=== PATIENT | female | born 1960 | race Caucasian/White ===

== ENCOUNTER 2023-08-17 11:41 | Outpatient (REF) | payer MEDICAID, SELFPAY ==
[2023-08-17 14:17] LABS: MANUAL DIFF FLAG NO
[2023-08-17 14:19] LABS: Basophils Percent Auto 0.9 % (0-2); Eosinophils Absolute Auto 0.1 X10*3/uL (0.0-0.4); Eosinophils Percent Auto 2.2 % (0-4); Hematocrit 41.7 % (37.0-47.0); Hemoglobin 13.9 g/dl (12.0-16.0); Imm Gran Abs Auto 0.01 X10*3/uL (0.00-0.03); Imm Gran Pct Auto 0.2 % (0.0-0.4); Lymphocytes Absolute Auto 1.5 X10*3/uL (1.2-4.9); Lymphocytes Percent Auto 33.3 % (20-40); Mean Corpuscular HGB Conc 33.3 g/dl (31.0-35.0); Mean Corpuscular Hemoglobin 32.3 pg (27.0-33.0); Mean Corpuscular Volume 96.8 fL (80.0-98.0); Mean Platelet Volume 11.3 fL (9.4-12.3); Monocytes Absolute Auto 0.4 X10*3/uL (0.1-1.2); Monocytes Percent Auto 8.1 % (2-11); Neutrophils Absolute Auto 2.5 x10*3/uL (2.0-8.3); Neutrophils Percent Auto 55.3 % (45-73); Platelet Count 185 X10*3/uL (160-400); Red Blood Count 4.31 X10*6/uL (4.20-5.50); White Blood Count 4.5 X10*3/uL (4.8-10.8)
[2023-08-17 14:35] LABS: Anion Gap 15 (12-20); Blood Urea Nitrogen 3 mg/dL (9-16); Calcium 9.7 mg/dL (8.4-10.2); Carbon Dioxide 23 mmol/L (22-29); Chloride 105 mmol/L (96-108); Cholesterol 246 mg/dL (<200); Estimated Glomerular Filt Rate > 60; Glucose Fasting 76 mg/dL (60-99); HDL Cholesterol 132 mg/dL (>40); LDL Cholesterol Calculated 95 mg/dL (<100); Sodium 139 mmol/L (135-145); Triglycerides 98 mg/dL (<150)
== END 2023-08-17 11:42 | disposition home or self-care (01) ==
LOC: HO.CHCLDS 11:41
PROVIDERS: Visit Provider Internal Medicine
DX: Z00.00 Encounter for general adult medical examination without abnormal findings (principal)
CPT/HCPCS: 36415; 80048; 80061; 85025

== ENCOUNTER 2023-09-16 10:08 | Outpatient (REF) | payer MEDICAID, SELFPAY ==
--- NOTE | ~2023-09-16 | MM_ITS ---
EXAMINATION: MM SCREENING DIGITAL BREAST TOMOSYNTHESIS, BILATERAL CLINICAL INFORMATION: Screening. Asymptomatic. COMPARISON: Mammography: This study is compared with prior exams dating back to 2015. TECHNIQUE: Digital breast tomosynthesis is performed in both the craniocaudal and mediolateral oblique views along with computer-aided detection (CAD). Synthesized 2D images are generated from the tomosynthesis. FINDINGS: The breasts are almost entirely fatty (ACR BI-RADS breast composition Category a). There are no significant masses, abnormal calcifications, or other abnormalities. MM/MM tomosynthesis screening BI IMPRESSION: No mammographic evidence of malignancy. ASSESSMENT: BI-RADS BI-RADS 1 - Negative RECOMMENDATION: Routine annual mammography screening. 1 year F/U This examination should not preclude the clinical evaluation of a suspicious palpable abnormality. This patient's information was entered into a reminder system with a target due date for their next mammogram.
== END 2023-09-16 10:09 | disposition home or self-care (01) ==
LOC: HO.MAMMO 10:08
PROVIDERS: PCP Internal Medicine; Visit Provider Internal Medicine
DX: Z12.31 Encounter for screening mammogram for malignant neoplasm of breast (principal)
CPT/HCPCS: 77063; 77067

== ENCOUNTER → 2023-09-16 10:30 | Outpatient (BNV) | payer MEDICAID, SELFPAY | PROVIDERS: PCP Internal Medicine; Visit Provider Radiology Diagnostic Radiology | DX: Z12.31 Encounter for screening mammogram for malignant neoplasm of breast (principal) | CPT/HCPCS: 77063; 77067 ==

== ENCOUNTER 2024-03-21 12:08 | Outpatient (REF) | payer MEDICAID, SELFPAY ==
[2024-03-21 14:40] LABS: MANUAL DIFF FLAG NO
[2024-03-21 14:47] LABS: Basophils Absolute Auto 0.1 X10*3/uL (0.0-0.2); Basophils Percent Auto 0.9 % (0-2); Eosinophils Absolute Auto 0.1 X10*3/uL (0.0-0.4); Eosinophils Percent Auto 1.3 % (0-4); Hematocrit 32.8 % (37.0-47.0); Hemoglobin 10.3 g/dl (12.0-16.0); Imm Gran Abs Auto 0.02 X10*3/uL (0.00-0.03); Imm Gran Pct Auto 0.4 % (0.0-0.4); Lymphocytes Absolute Auto 1.5 X10*3/uL (1.2-4.9); Lymphocytes Percent Auto 28.5 % (20-40); Mean Corpuscular HGB Conc 31.4 g/dl (31.0-35.0); Mean Corpuscular Hemoglobin 30.1 pg (27.0-33.0); Mean Corpuscular Volume 95.9 fL (80.0-98.0); Monocytes Absolute Auto 0.5 X10*3/uL (0.1-1.2); Monocytes Percent Auto 9.7 % (2-11); Neutrophils Absolute Auto 3.2 x10*3/uL (2.0-8.3); Neutrophils Percent Auto 59.2 % (45-73); Platelet Count 376 X10*3/uL (160-400); Red Blood Count 3.42 X10*6/uL (4.20-5.50); Red Cell Distribution Width 15.3 % (11.0-16.0); White Blood Count 5.4 X10*3/uL (4.8-10.8)
[2024-03-21 15:11] LABS: Anion Gap 12 (12-20); Blood Urea Nitrogen 12 mg/dL (9-16); Calcium 10.4 mg/dL (8.4-10.2); Carbon Dioxide 28 mmol/L (22-29); Chloride 107 mmol/L (96-108); Estimated Glomerular Filt Rate > 60; Glucose Random 97 mg/dL (60-115); Potassium 4.4 mmol/L (3.3-5.1); Sodium 143 mmol/L (135-145)
== END 2024-03-21 12:09 | disposition home or self-care (01) ==
LOC: HO.CHCLDS 12:08
PROVIDERS: Visit Provider Internal Medicine
DX: I21.4 Non-ST elevation (NSTEMI) myocardial infarction (principal); G43.709 Chronic migraine without aura, not intractable, without status migrainosus; D72.828 Other elevated white blood cell count; I10 Essential (primary) hypertension
CPT/HCPCS: 36415; 80048; 85025

== ENCOUNTER 2024-09-04 10:56 | Outpatient (REF) | payer MEDICAID, SELFPAY ==
[2024-09-04 14:24] LABS: MANUAL DIFF FLAG NO
[2024-09-04 14:28] LABS: Basophils Percent Auto 0.6 % (0-2); Eosinophils Percent Auto 0.2 % (0-4); Hematocrit 44.1 % (37.0-47.0); Hemoglobin 14.7 g/dl (12.0-16.0); Imm Gran Abs Auto 0.02 X10*3/uL (0.00-0.03); Imm Gran Pct Auto 0.3 % (0.0-0.4); Lymphocytes Absolute Auto 0.9 X10*3/uL (1.2-4.9); Lymphocytes Percent Auto 14.5 % (20-40); Mean Corpuscular HGB Conc 33.3 g/dl (31.0-35.0); Mean Corpuscular Hemoglobin 30.6 pg (27.0-33.0); Mean Corpuscular Volume 91.9 fL (80.0-98.0); Monocytes Absolute Auto 0.3 X10*3/uL (0.1-1.2); Monocytes Percent Auto 4.6 % (2-11); Neutrophils Absolute Auto 5.1 x10*3/uL (2.0-8.3); Neutrophils Percent Auto 79.8 % (45-73); Platelet Count 147 X10*3/uL (160-400); Red Cell Distribution Width 15.9 % (11.0-16.0); White Blood Count 6.4 X10*3/uL (4.8-10.8)
[2024-09-04 15:11] LABS: Alanine Aminotransferase 65 U/L (0-31); Albumin Level 4.8 g/dL (3.5-5.0); Alkaline Phosphatase 152 U/L (39-117); Anion Gap 19 (12-20); Aspartate Amino Transferase 159 U/L (5-31); Blood Urea Nitrogen 5 mg/dL (9-16); Calcium 10.1 mg/dL (8.4-10.2); Carbon Dioxide 22 mmol/L (22-29); Chloride 101 mmol/L (96-108); Estimated Glomerular Filt Rate > 60; Glucose Random 82 mg/dL (60-115); Potassium 4.9 mmol/L (3.3-5.1); Sodium 137 mmol/L (135-145)
== END 2024-09-04 10:57 | disposition home or self-care (01) ==
LOC: HO.CHCLDS 10:56
PROVIDERS: Visit Provider Internal Medicine
DX: R19.7 Diarrhea, unspecified (principal)
CPT/HCPCS: 36415; 80053; 85025

== ENCOUNTER 2024-09-05 11:02 | Outpatient (REF) | payer MEDICAID, SELFPAY ==
[2024-09-06 08:23] LABS: HBc Num1 0.19 S/CO (0.00-0.79); Hepatitis A Antibody IgM 0.18 Index (0-0.79); Hepatitis B Core Antibody Nonreactive (Nonreactive); Hepatitis B Surface Antigen Negative (Negative); ~HepC Num1 0.25 S/CO (0.00-0.79); ~Hepatitis A Antibody IgM Nonreactive (Nonreactive); ~Hepatitis B Surface Antibody NONREACTIVE (Nonreactive); ~Hepatitis C Antibody Nonreactive (Nonreactive)
== END 2024-09-05 11:03 | disposition home or self-care (01) ==
LOC: HO.CHCLDS 11:02
PROVIDERS: Visit Provider Internal Medicine
DX: R74.01 Elevation of levels of liver transaminase levels (principal)
CPT/HCPCS: 36415; 86704; 86706; 86709; 86803; 87340

== ENCOUNTER 2025-06-27 11:48 | Outpatient (REF) | payer MEDICAID, SELFPAY ==
--- OUTSIDE RECORDS SUMMARY | 2025-06-27 11:15 | XMS_ITS | Encounter Summary ---
Author Organization [employer] Address [address] [facility] 7t [place] [address] Care Team Providers Care Pulp Operator Name Role Phone Fany James MD Primary Care Provider +1- [phone] Encounter Details Date Type Department Care Team ([facility] st Contact Info) Description 06/27/2025 11:15 AM EDT Office Visit [facility] CHC MED & PEDS [address] [place] [address] Yojana Bell MD [address] [place] [address] Chronic pain syndrome (Primary Dx) Social History Tobacco Use Types Packs/Day Years Used Date Smoking Tobacco: Every Day Cigarettes 0.5 45 Passive Smoke Exposure: Current Smokeless Tobacco: Never Alcohol Use Standard Drinks/Week Comments Not Currently 0 (1 standard drink = 0.6 oz pur e alcohol) Depression Answer Date Recorded Patient Health Questionnaire-9 Score 4 02/06/2025 Patient Health Questionnaire-9 Score 4 02/06/2025 Last PHQ-9: Questionnaire Data Not on file 0 02/06/2025 Housing Stability Answer Date Recorded What is your housing situation today? I have angela silva 01/29/[address] you li ve. Do you have problems with any of the following? None of the above 01/29/2024 Food Insecurity Answer Date Recorded Within the past 12 months, y ou worried that your food would run out before you got money to buy more: Never True 02/07/2025 Within the past 12 months,th e food you bought just didn't last and you didn't have enough money to get more: Never True Transportation Answer Date Recorded In the past 12 months, has l ack of transportation kept you from medical appts, meetings, work or from getting things needed for daily living? No 01/29/2024 Utilities Answer Date Recorded In the past 12 months, has t he electric, gas, oil or water company threatened to shut off services in your home? No 02/07/2025 Depression Answer Date Recorded Patient Health Questionnaire-2 Score 2 02/06/2025 Internet Access Answer Date Recorded Internet Access Q1 Yes 02/07/2025 Internet Access Q2 Not on file 02/07/2025 Comments Unknown Sex and Gender Information Value Date Recorded Sex Assigned at Female 08/22/2022 10:16 AM EDT Legal Sex Female 10:16 AM EDT Gender Identity Female 08/22/2022 10:16 AM EDT Sexual Orientation Choose not to disclose 2024 3:08 PM EDT documented as of this encounter Last Filed Vital Signs Vital Sign Reading Time Taken Comments Blood Pressure 140/86 06/27/2025 11:25 AM EDT Pulse 101 06/27/2025 11:25 AM EDT Temperature 36.8 C (98.2 F) 06/27/2025 11:25 AM EDT Respiratory Rate 20 06/27/2025 11:25 AM EDT Oxygen Saturation 96% 06/27/2025 11:25 AM EDT Inhaled Oxygen Concentration - - Weight 72.1 kg (159 lb) 06/27/2025 11:25 AM EDT Height - - Body Mass Index 27.29 03/07/2025 1:34 PM EDT documented in this encounter Plan of Treatment Upcoming Encounters Date Type Department Care Team (Late st Contact Info) Description 07/15/2025 10:00 AM EDT Medication Management [facility] MED & PEDS [address] [place] [address] Raegan Bhardwaj PharmD [address] [place] [address] 07/31/2025 11:30 AM EDT Office Visit [facility] MED & PEDS [address] [place] [address] Fany James MD [address] [place] [id number] Scheduled Orders Name Type Priority Associated Diagnoses Orde r Schedule Basic Metabolic Panel Lab Routine Chronic pain syndrome Expected: 06/27/2025 (Approximate), Expires: 06/27/2026 CBC auto differential Lab Routine Chronic pain syndrome Expected: 06/27/2025 (Approximate), Expires: 06/27/2026 Hepatic Function Panel Lab Routine Chronic pain syndrome Expected: 06/27/2025 (Approximate), Expires: 06/27/2026 Vitamin B12/Folate, Serum Panel Lab Routine Chronic pain syndrome Expected: 06/27/2025, Expires: 06/27/2026 TSH W/Reflex to FT4 Lab Routine Chronic pain syndrome Expected: 06/27/2025 (Approximate), Expires: 06/27/2026 Lipase Lab Routine Chronic pain syndrome Expected: 06/27/2025, Expires: 06/27/2026 Magnesium Lab Routine Chronic pain syndrome Expected: 06/27/2025, Expires: 06/27/2026 documented as of this encounter Procedures Procedure Name Priority Date/Time Associated Diagnosis Comments POCT RAPID COVID ANTIGEN Routine 06/27/2025 11:50 AM EDT Chronic pain syndrome POCT URINALYSIS DIPSTICK Routine 06/27/2025 11:50 AM EDT Chronic pain syndrome documented in this encounter Results * (ABNORMAL) POCT Urinalysis (06/27/2025 11:50 AM EDT) Color, UA Yellow Clarity, UA Clear Glucose, UA Negative Bilirubin, UA Many Comment:large Ketones, UA Positive Comment:40mg/dL Spec Grav, UA 1.015 Blood, UA Positive(A) Negative, None Detected Comment:trace pH, UA 6.5 Protein, UA Negative Urobilinogen, UA 1.0 Leukocytes, UA Negative Negative, Rare, Trace Nitrite, UA Negative Negative, None Detected Appearance, UA clear QC Media Lot # [id number] Lot# Expiration Date Urine 06/27/2025 11:5 0 AM EDT Yojana Bell MD POINT OF CARE TEST ENTER/EDIT ORDERABLES Final Result * POCT Rapid Covid-19 [employer]NOW (06/27/2025 11:50 AM EDT) Rapid COVID Ag Negative QC Media Lot # [id number] Lot# Expiration Date 72,[id number] Swab 06/27/2025 11:5 0 AM EDT Yojana Bell MD POINT OF CARE TEST ENTER/EDIT ORDERABLES Final Result documented in this encounter Visit Diagnoses Diagnosis Chronic pain syndrome- Primary documented in this encounter Additional Health Concerns Assessment Noted Time PHQ-9 Depression Total Score: 4 02/07/20 25 11:17 AM EDT documented as of this encounter Care Teams Pulp Operator Relationship Specialty Start Date End Date Fany James MD [address] [place] [id number] PCP - General Internal Medicine 07/28/20 Carmen Madsen Development RepresentativeBiodiesel Production Associate 01/22/24 documented as of this encounter
--- OUTSIDE RECORDS SUMMARY | 2025-06-27 12:35 | XMS_ITS | Encounter Summary ---
Author Organization [employer] Address [address] [facility] 7t [place] [address] Care Team Providers Care Magnetic Resonance Imaging Coordinator Name Role Phone Fany James MD Primary Care Provider [phone]- [phone] Encounter Details Date Type Department Care Team ([facility] st Contact Info) Description 07/04/2024 Orders Only [facility] CHC MED & PEDS [address] [place], [place] [phone] Fany aJmes MD [address] [place] [address] Left temporal headache (Primary Dx) Social History Tobacco Use Types Packs/Day Years Used Date Smoking Tobacco: Every Day Cigarettes 0.5 45 Passive Smoke Exposure: Current Smokeless Tobacco: Never Alcohol Use Standard Drinks/Week Comments Not Currently 0 (1 standard drink = 0.6 oz pur e alcohol) Depression Answer Date Recorded Patient Health Questionnaire-9 Score 14 08/17/2023 Patient Health Questionnaire-9 Score 14 08/17/2023 Last PHQ-9: Questionnaire Data Not on file 1 Housing Stability Answer Date Recorded What is [...] got money to buy more: Never True 01/29/2024 Within the past 12 months,th e food you bought just didn't last and you didn't have enough money to get more: Never True 05/2024 Transportation Answer Date Recorded In the past 12 months, has l ack of transportation kept you from medical appts, meetings, work or from getting things needed for daily living? No 01/29/2024 Utilities Answer Date Recorded In the past 12 months, has t he electric, gas, oil or water company threatened to shut off services in your home? No 01/29/2024 Depression Answer Date Recorded Patient Health Questionnaire-2 Score 4 08/17/2023 Comments Unknown Sex and Gender Information Value Date Recorded Sex Assigned at Female 08/22/2022 10:16 AM EDT Legal Sex Female 10:16 AM EDT Gender Identity Female 08/22/2022 10:16 AM EDT Sexual Orientation Choose not to disclose 2024 3:08 PM EDT documented as of this encounter Plan of Treatment Upcoming Encounters Date Type Department Care Team (Late st Contact Info) Description 07/15/2025 10:00 AM EDT Medication Management [facility] MED & PEDS [address] [place] [address] Raegan Bhardwaj, PharmD [address] [place] [address] 07/31/2025 11:30 AM EDT Office Visit [facility] MED & PEDS [address] [place] [address] Fany James MD [address] [place] [address] documented as of this encounter Visit Diagnoses Diagnosis Left temporal headache- Primary documented in this encounter Additional Health Concerns Assessment Noted Time PHQ-9 Depression Total Score: 14 023 11:56 AM EDT documented as of this encounter Care Teams Magnetic Resonance Imaging Coordinator Relationship Specialty Start Date End Date Fany James MD [address] [place] [address] PCP - General Internal Medicine 07/28/20 Carmen Madsen Belt SewerMarble Helper 01/22/24 [employer] 01/25/25 04/06/25 documented as of this encounter
--- OUTSIDE RECORDS SUMMARY | 2025-06-27 12:35 | XMS_ITS | Encounter Summary ---
Author Organization [employer] Address [address] [facility] 7t [place] [address] Care Team Providers Care Assembler Golf Wood Head Name Role Phone Fany James MD Primary Care Provider [phone]- [phone] Encounter Details Date Type Department Care Team ([facility] st Contact Info) Description 06/19/2024 Orders Only [facility] CHC MED & PEDS [address] [place], [place] [phone] Fany James MD [address] [place] [address] Left temporal headache (Primary Dx) Social History [...] Description 07/15/2025 10:00 AM EDT Medication Management [facility] MED & PEDS [address] [place] [address] Raegan Bhardwaj, PharmD [address] [place] [address] 07/31/2025 11:30 AM EDT Office Visit [facility] MED & PEDS [address] [place] [address] Fany James MD [address] [place] [address] documented as of this encounter Visit Diagnoses Diagnosis Left temporal headache- Primary documented in this encounter Additional Health Concerns Assessment Noted Time PHQ-9 Depression Total Score: 14 023 11:56 AM EDT documented as of this encounter Care Teams Assembler Golf Wood Head Relationship Specialty Start Date End Date Fany James MD [address] [place] [address] PCP - General Internal Medicine 07/28/20 Carmen Madsen Hearing ExaminerCanvass Manager 01/22/24 [employer] 01/25/25 04/06/25 documented as of this encounter
--- OUTSIDE RECORDS SUMMARY | 2025-06-27 12:35 | XMS_ITS | Encounter Summary ---
Author Organization [employer] Address [address] [facility] 7t [place] [address] Care Team Providers Care Licensed Acupuncturist Name Role Phone Fany James MD Primary Care Provider +1- [phone] Reason for Visit * Reason Onset Date Comments Pre-op Exam 01/17/2024 Encounter Details Date Type Department Care Team ([facility] st Contact Info) Description 01/17/2024 Telephone [facility] MEDICINE [address] [place] [address] Fany James MD [address] [place] [address] Pre-op Exam Social History Tobacco Use Types Packs/Day Years [...] housing situation today? I have angela silva 08/09/[address] you li ve. Do you have problems with any of the following? None of the above 08/09/2023 Food Insecurity Answer Date Recorded Within the past 12 months, y ou worried that your food would run out before you got money to buy more: Never True 08/09/2023 Within the past 12 months,th e food you bought just didn't last and you didn't have enough money to get more: Never True Transportation Answer Date Recorded In the past 12 months, has l ack of transportation kept you from medical appts, meetings, work or from getting things needed for daily living? No 08/09/2023 Utilities Answer Date Recorded In the past 12 months, has t he electric, gas, oil or water company threatened to shut off services in your home? No 08/09/2023 Depression Answer Date Recorded Patient Health Questionnaire-2 Score 4 08/17/2023 Comments Unknown Sex and Gender Information Value Date Recorded Sex Assigned at Female 08/22/2022 10:16 AM EDT Legal Sex Female 10:16 AM EDT Gender Identity Female 08/22/2022 10:16 AM EDT Sexual Orientation Choose not to disclose 2024 3:08 PM EDT documented as of this encounter Miscellaneous Notes * Telephone Encounter - Nereida Contreras RN - 01/18/2024 3:17 PM EDT [facility]ed call [facility] regarding message below. Confirmed pt is having R eye cataract surgery on 02/01/24. All info correct in below message. Pt scheduled for Preop on 01/29/24 for preop and Adina will contact pt. * Telephone Encounter - Demetri Hernandez - 01/17/2024 9:16 AM EDT Date of Surgery: 01/31 Surgical procedure being done: Left eye Cataract surgery Type of anesthesia: Mac Lab needed: no EKG: no Surgeon's name: Dr. Fishman Say Facility name: [facility] Surgeon's office number: [phone] Ext [phone] Surgeon's office fax number: [phone] Contact name (person you spoke with): Rafael Last office note from surgeon requested: Will be faxed documented in this encounter Plan of Treatment Upcoming Encounters Date Type Department Care Team ([facility] st Contact Info) Description 07/15/2025 10:00 AM EDT Medication Management [facility] MED & PEDS [address] [place] [address] Raegan Bhardwaj, PharmD [address] [place], [place] [phone] 07/31/2025 11:30 AM EDT Office Visit [facility] MED & PEDS [address] [place] [address] Fany James MD [address] [place] [address] documented as of this encounter Visit Diagnoses Not on filedocumented in this encounter Additional Health Concerns Assessment Noted Time PHQ-9 Depression Total Score: 14 023 11:56 AM EDT documented as of this encounter Care Teams Licensed Acupuncturist Relationship Specialty Start Date End Date Fany James MD [address] [place] [address] PCP - General Internal Medicine 07/28/20 Carmen Madsen Home CoordinatorDesign Transferrer 01/22/24 [employer] 01/25/25 04/06/25 documented as of this encounter
--- OUTSIDE RECORDS SUMMARY | 2025-06-27 12:35 | XMS_ITS | Encounter Summary ---
Author Organization [employer] Address [address] [facility] 7t [place] [address] Care Team Providers Care Recreational Director Name Role Phone Fany James MD Primary Care Provider +- [phone] Reason for Visit * Reason Comments Med Refill Encounter Details Date Type Department Care Team ([facility] st Contact Info) Description 06/08/2024 Refill [facility] CHC MED & PEDS [address] [place] [address] Kathleen Carrington, NETWORK CONTROL TECHNICIAN [address] [place] [address] Arthralgia of lower leg, unspecified laterality Social History Tobacco Use Types Packs/Day Years [...] Description 07/15/2025 10:00 AM EDT Medication Management [facility] MED & PEDS [address] [place] [address] Raegan Bhardwaj, PharmD [address] [place] [address] 07/31/2025 11:30 AM EDT Office Visit [facility] MED & PEDS [address] [place] [address] Fany James MD [address] [place] [address] documented as of this encounter Visit Diagnoses Diagnosis Arthralgia of lower leg, unspecified laterality documented in this encounter Additional Health Concerns Assessment Noted Time PHQ-9 Depression Total Score: 14 023 11:56 AM EDT documented as of this encounter Care Teams Recreational Director Relationship Specialty Start Date End Date Fany James MD [address] [place] [address] PCP - General Internal Medicine 07/28/20 Carmen Madsen Trade ClerkPan Operator 01/22/24 [employer] 01/25/25 04/06/25 documented as of this encounter
--- OUTSIDE RECORDS SUMMARY | 2025-06-27 12:35 | XMS_ITS | Encounter Summary ---
Author Organization [employer] Address [address] [facility] [address] [place] [address] Care Team Providers Care Finish Production Manager Name Role Phone Fany James MD Primary Care Provider [phone]- [phone] Reason for Visit * Reason Onset Date Comments Nurse Triage 06/27/2025 Encounter Details Date Type Department Care Team ([facility] st Contact Info) Description 06/27/2025 Telephone [facility] CHC MED & PEDS [address] [place] [address] Fany James MD [address] [place] [address] Nurse Triage Social History Tobacco Use Types Packs/Day Years [...] encounter Miscellaneous Notes * Telephone Encounter - Kenia Pineda RN - 06/27/2025 10:01 AM EDT Called pt. Pt. States that she has been having headache, dizziness, body pain x 1 week. Pt. Has notdone a Covid test because she states that she doesn't go outside. Pt. Unknown if she has a fever. Pt. Feels extremely tired. Pt. Has also been vomiting. No cough, no cold sx. Pt. Trying to stay hydrated but, feels nauseous. Pt. Wants to be seen. Appt. Given for 1115am today in [facility]. Protocol Used: Weakness (Generalized) and Fatigue (Adult) Protocol-Based Disposition: See in Office or Video Visit Today Video visit offer not recorded Positive Triage Questions: * Moderate weakness (e.g., interferes with work, school, normal activities) and lasts > 3 days * Patient wants to be seen * All higher-acuity triage questions were negative Care Advice Discussed: * Reassurance and Education - Mild Fatigue or Weakness * Fever Medicines * Drink Fluids * Rest * Telephone Encounter - Oswaldo Zuñiga - 06/27/2025 9:52 AM EDT Symptoms: Loss of Appetite, Headache, Lethargic (Tired) Outcome: Schedule an urgent appointment (within 4 hours) or talk to a nurse or provider soon Reason: Getting worse The caller accepted this outcome. Contact pt at [phone] documented in this encounter Plan of Treatment Upcoming Encounters Date Type Department Care Team ([facility] st Contact Info) Description 07/15/2025 10:00 AM EDT Medication Management [facility] MED & PEDS [address] [place] [address] Raegan Bhardwaj PharmD [address] [place] [address] 07/31/2025 11:30 AM EDT Office Visit [facility] MED & PEDS [address] [place] [address] Fany James MD [address] [place] [address] documented as of this encounter Visit Diagnoses Not on filedocumented in this encounter Additional Health Concerns Assessment Noted Time PHQ-9 Depression Total Score: 4 02/07/20 25 11:17 AM EDT documented as of this encounter Care Teams Finish Production Manager Relationship Specialty Start Date End Date Fany James MD [address] [place] [address] PCP - General Internal Medicine 07/28/20 Carmen Madsen Instructor Military ScienceTherapeutic Massage Technician 01/22/24 documented as of this encounter
--- OUTSIDE RECORDS SUMMARY | 2025-06-27 12:35 | XMS_ITS | Clinical Summary ---
Author Organization [facility] Address [address] [place] [address] Phone Care Team Providers Care Dope Heater Name Role Phone Fany James MD Primary Care Provider [phone] Allergies Active Allergy Reactions Criticality Noted Date Comments Latex Rash 02/27/2025 Medications cetirizine (ZyrTEC) 10 mg tablet Take 1 tablet (10 mg total) by mouth 1 (one) time each day if needed for allergies. Active cholecalciferol (VITAMIN D-3) 25 mcg (1,000 unit) tablet Take 1 tablet (1,000 Units total) by mouth daily. 4 Active SUMAtriptan (IMITREX) 25 mg tablet Take 1 tablet (25 mg total) by mouth 1 (one) time if needed for migraine. 5 Active tolterodine LA (DETROL LA) 2 mg 24 hr capsule Take 1 capsule (2 mg total) by mouth 1 (one) time each day. Active albuterol 1.25 mg/3 mL nebulizer solution Take 3 mL (1.25 mg total) by nebulization every 4 (four) hours if needed for wheezing or shortness of breath. 5 Active Ventolin HFA 90 mcg/actuation inhaler Inhale 2 puffs by mouth every 4 (four) hours if needed for wheezing or shortness of breath. Active aspirin 81 mg EC tablet Take 1 tablet (81 mg total) by mouth 1 (one) time each day. Active azelastine (ASTELIN) 137 mcg (0.1 %) nasal spray Administer 1 spray into each nostril 2 (two) times a day if needed for allergies. Active Symbicort 160-4.5 mcg/actuation inhaler Inhale 2 puffs by mouth 2 (two) times a day if needed (shortness of breath). Active budesonide (PULMICORT) 180 mcg/actuation inhaler Inhale 1 puff by mouth 2 (two) times a day if needed (shortness of breath). Rinse mouth with water after use to reduce aftertaste and incidence of candidiasis. Do not swallow. Active levETIRAcetam (KEPPRA) 500 mg tablet Take 1 tablet (500 mg total) by mouth 2 (two) times a day. 60 each 5 Active nicotine (NICODERM CQ) 14 mg/[address] 1 patch on the skin 1 (one) time each day for 1 day. 5 Active metoprolol succinate (TOPROL-XL) 25 mg 24 hr tablet Take 1 tablet (25 mg total) by mouth 1 (one) time each day. Do not crush or chew. Active atorvastatin (LIPITOR) 40 mg tablet Take 1 tablet (40 mg total) by mouth at bedtime. Active Active Problems Problem Noted Date Diagnosed Date Chronic back pain 02/27/2025 History of non-ST elevation myocardial infarctio n (NSTEMI) 02/27/2025 Coronary artery disease invo lving karuk coronary artery of karuk heart without angina pectoris 02/27/2025 Assessment & Plan (03/06/2025 12:32 AM EDT): Coronary artery disease as detailed above. No anginal symptoms. Continue medical therapy with aspirin, BB and statin. I have reviewed with the patient the importance of a heart healthy lifestyle which includes eating a low-fat low-salt diet, getting regular exercise, maintaining a healthy weight, not smoking, and following up with routine medical care. Assessment & Plan (02/27/2025 8:56 AM EDT): Alcoholism (CMS/HCC V24, CMS/HCC V28) 02/19/2025 Chest pain, unspecified type 01/16/2025 Assessment & Plan (03/06/2025 12:32 AM EDT): Resolved. COPD (chronic obstructive pu lmonary disease) ([facility] V24, [facility] V28) 05/03/2024 NSTEMI (non-ST elevated myoc ardial infarction) ([facility] [place] [place] V24, [facility] [place] V28) 05/03/2024 Depression 12/08/2022 Migraine 10/21/2010 Surgical History Surgery Date Site/Laterality Comments CARDIAC CATHETERIZATION DONE ON 01/22/2025 AT [facility] INDICATIONS: Abnormal nuclear perfusion study. Medical History Medical History Date Comments Anemia Hypertension Seizures ([facility] V24, [facility] [place] [place] V28) Urinary incontinence Ulnar fracture COPD with emphysema ([facility] [place] [place] V24, [facility] [place] V28) Compression fracture of spine ([facility] [place] V24, [facility] V28) Chronic back pain Social History Tobacco Use Types Packs/Day Years Used Date Smoking Tobacco: Former Cigarettes Smokeless Tobacco: Never Tobacco Cessation:Counseling Given: Not Answered Alcohol Use Standard Drinks/Week Comments Not Currently 0 (1 standard drink = 0.6 oz pur e alcohol) Interpersonal Safety Answer Date Record ed Physical Abuse 01/16/2025 Verbal Abuse 01/16/2025 Comments Unknown Sex and Gender Information Value Date Recorded Sex Assigned at Female 09/27/2024 1:22 PM EST Legal Sex Female 8:28 AM EST Gender Identity Female 09/27/2024 1:22 PM EST Sexual Orientation Straight 09/27/2024 1: 22 PM EST Obstetrics History Last Filed Vital Signs Vital Sign Reading Time Taken Comments Blood Pressure 120/62 02/27/2025 8:15 AM EDT Pulse 70 02/27/2025 8:15 AM EDT Temperature 36.1 C (97 F) 01/21/2025 3:31 PM EDT Respiratory Rate 16 01/21/2025 3:31 PM EDT Oxygen Saturation 100% 02/27/2025 8:15 AM EDT Inhaled Oxygen Concentration - - Weight 75.8 kg (167 lb) 02/27/2025 8:15 AM EDT Height 158.8 cm (5' 2.5 ) 02/27/2025 8:15 AM EDT Body Mass Index 30.06 02/27/2025 8:15 AM EDT Plan of Treatment Upcoming Encounters Date Type Department Care Team (Late st Contact Info) Description 07/03/2025 8:20 AM EDT Office Visit [facility] [address] [place] [address] Caden Anguiano MD [address] [place] [address] [address] [place] [address] Health Maintenance Due Date Last Done Comments Breast Cancer Screening 1962 Hepatitis A Vaccines (1 of 2 - Risk 2-dose series) 1981 Cervical Cancer Screening: Pap Smear 1983 Zoster Vaccines (1 of 2) 2012 RSV Immunization Adult Patients (1 - Risk 60-74 years 1-dose series) 2022 Colorectal Cancer Screening: Colonoscopy 09/25/2022 HIV Screening 09/25/2022 Hepatitis C Screening 09/25/2022 Social Influencers of Health Screening 09/25/2022 Depression Screening 10/23/2024 COVID-19 Vaccine ( - season) 2025 Influenza Vaccine (#1) 2025 5, 08/02/2013, 07/04/2012 Hypertension/CHF/CAD Annual BMP Blood Test 01/20/2026 01/20/2025, 01/18/2025, 01/17/2025, Additional history exists DTaP,Tdap,and Td Vaccines (2 - Td or Tdap) 04/14/2026 04/14/2016 Cholesterol Screening (Lipid Panel) 01/18/2030 01/18/2025, 08/17/2023 Pneumococcal Vaccine: 50+ Years Completed 01/29/2024, 09/12/2015 HIB Vaccines Aged Out No longer eligi ble based on patient's age to complete this topic HPV Vaccines Aged Out No longer eligi ble based on patient's age to complete this topic Hepatitis B Vaccines Aged Out No long er eligible based on patient's age to complete this topic IPV Vaccines Aged Out No longer eligi ble based on patient's age to complete this topic MMR Vaccines Aged Out No longer eligi ble based on patient's age to complete this topic Meningococcal ACWY Vaccine Aged Out N o longer eligible based on patient's age to complete this topic Meningococcal B Vaccine Aged Out No l onger eligible based on patient's age to complete this topic RSV Immunization Patients Under 20 months Aged Out No longer eligible based on patient's age to complete this topic Varicella Vaccines Aged Out No longer eligible based on patient's age to complete this topic Procedures Procedure Name Priority Date/Time Associated Diagnosis Comments BASIC METABOLIC PANEL Routine 01/20/2025 8:58 AM EDT LIPID PANEL WITH REFLEX TO DIRECT LDL Routine 01/18/2025 6:18 AM EDT from Last 3 Months or Most Recently Relevant to Health Maintenance Results * Basic metabolic panel (01/20/2025 8:58 AM EDT) Sodium 138 133 - 145 mmol/L LAB CHEMISTRY METHOD 01/20/2025 9:28 AM [facility] Potassium 4.1 3.5 - 5.5 mmol/L LAB CHEMISTRY METHOD 01/20/2025 9:28 AM [facility] Chloride 106 96 - 110 mmol/L LAB CHEMISTRY METHOD 01/20/2025 9:28 AM [facility] CO2 28 21 - 32 mmol/L LAB CHEMISTRY METHOD 01/20/2025 9:28 AM [facility] Anion Gap 4 3 - 11 LAB CHEMISTRY METHOD 01/20/2025 9:28 AM [facility] Glucose 89 70 - 100 mg/dL LAB CHEMISTRY METHOD 01/20/2025 9:28 AM [facility] BUN 10 5 - 25 mg/dL LAB CHEMISTRY METHOD 01/20/2025 9:28 AM [facility] Creatinine 0.61 0.50 - 1.10 mg/dL LAB CHEMISTRY METHOD 01/20/2025 9:28 AM [facility] eGFR 101 >=60 mL/min/1. 73m2 LAB CHEMISTRY METHOD 01/20/2025 9:28 AM [facility] Comment:Calculation based on the Chronic Kidney Disease Epidemiology Collaboration (CKD-EPI) equation refit without adjustment for race. BUN/Creatinine Ratio 16.4 LAB CHEMISTRY METHOD 01/20/2025 9:28 AM EDT [facility] Calcium 9.8 8.5 - 10.5 mg/dL LAB CHEMISTRY METHOD 01/20/2025 9:28 AM EDT [facility] Blood Venous blood specimen / Unknown Venipuncture / Unknown 01/20/2025 8:58 AM EDT 01/20/2025 9:02 AM EDT us Renetta SIMS LAB BLOOD ORDERABLES Final Result [facility] [address] [place] [address], [place] [phone] * (ABNORMAL) Lipid panel with reflex to direct LDL (01/18/2025 6:18 AM EDT) Cholesterol 209(H) 0 - 200 mg/dL LAB CHEMISTRY METHOD 01/18/2025 8:08 AM [facility] Triglycerides 130 0 - 150 mg/dL LAB CHEMISTRY METHOD 01/18/2025 8:08 AM [facility] HDL 94 >=40 mg/dL LAB CHEMISTRY METHOD 01/18/2025 8:08 AM [facility] LDL Calculated 89 0 - 100 mg/dL LAB CHEMISTRY METHOD 01/18/2025 8:08 AM [facility] VLDL Cholesterol Suraj 26 mg/dL LAB CHEMISTRY METHOD 01/18/2025 8:08 AM [facility] Non HDL Chol. (LDL+VLDL) 115 <145 mg/dL LAB CHEMISTRY METHOD 01/18/2025 8:08 AM [facility] Chol/HDL Ratio 2.2 0.0 - 4.4 LAB CHEMISTRY METHOD 01/18/2025 8:08 AM EDT [facility] Blood Venous blood specimen / Unknown Venipuncture / Unknown 01/18/2025 6:18 AM EDT 01/18/2025 7:10 AM EDT us Peter Coburn MD LAB BLOOD ORDERABLES Final Re sult [facility] [address] [place] [address], [place] [phone] from Last 3 Months or Most Recently Relevant to Health Maintenance Insurance MEDICA[place] Advance Directives Documents on File Type Date Recorded Patient Medical Device Sales Consultant Expl anation Health Care Decision (hx) 03/07/2024 AD KIM DIRECTIVE Health Care Decision (hx) 03/07/2024 AD KIM DIRECTIVE Health Care Decision (hx) 03/07/2024 AD KIM DIRECTIVE Health Care Decision (hx) 03/07/2024 AD KIM DIRECTIVE Health Care Decision (hx) 03/07/2024 AD KIM DIRECTIVE * Full Code - Confirmed (Latest Code Status on File) Date Activated Date Inactivated Comments 01/16/2025 5:58 PM 01/21/2025 6:26 PM This code sta tus was ascertained in the following way: Code status discussion: discussion with patient To update the patient's code status, place a code status order. Do not modify or discontinue any currently active code status orders. * Full Code - Default Date Activated Date Inactivated Comments 01/16/2025 2:47 PM 01/16/2025 5:58 PM This is orde r is used when code status has not been discussed with the patient, or code status is otherwise unknown/unconfirmed To update the patient's code status, place a code status order. Do not modify or discontinue any currently active code status orders. * Full Code - Confirmed Date Activated Date Inactivated Comments 01/16/2025 2:35 PM 01/16/2025 2:[address] atus was ascertained in the following way: Code status discussion: discussion with patient To update the patient's code status, place a code status order. Do not modify or discontinue any currently active code status orders. Care Teams Dope Heater Relationship Specialty Start Date End Date Fany James MD [address] [place] [id number] PCP - General Internal Medicine 09/10/24
--- OUTSIDE RECORDS SUMMARY | 2025-06-27 12:35 | XMS_ITS | Encounter Summary ---
Author Organization [employer] Address [address] [place] [address] Care Team Providers Care Combat Rifle Crewmember Name Role Phone Fany James MD Primary Care Provider [phone] Reason for Visit * Reason Onset Date Comments Nurse Triage 06/19/2024 Encounter Details Date Type Department Care Team (Late st Contact Info) Description 06/19/2024 Telephone [facility] [address] [place] [address] Fany James MD [address] [place] [address] Nurse Triage Social History Tobacco Use Types [...] is your housing situation today? I have angelalaly silva 01/29/[address] you [...] encounter Miscellaneous Notes * Telephone Encounter - Mikaela Mars RN - 06/19/2024 2:17 PM EDT Call to Pt, message is left to speak with UNIT ASSISTANT. UNIT ASSISTANT was available and message below is given to Pt and Pt will restart prednisone as ordered. I am still waiting for the results of the biopsy from [facility]. I am going to resume prednisone in themeantime at 50 mg daily x one more week. Ms Radha Koroma will be contacted as soon as [facility] send us the result of the biopsy. * Telephone Encounter - Fany James MD - 06/19/2024 2:11 PM EDT I am still waiting for the results of the biopsy from [facility]. I am going to resume prednisone in themeantime at 50 mg daily x one more week. Ms Radha Koroma will be contacted as soon as [facility] send us the result of the biopsy. * Telephone Encounter - Mikaela Mars RN - 06/19/2024 12:46 PM EDT Triage call to [phone] and Pt UNIT ASSISTANT answered. UNIT ASSISTANT informed that [phone] is Pt number. Called Pt at [phone], Pt answered and reports that headache has started again a couple of days ago and is very bad now. Pt reports has been worried about Pt mother and that stress has caused this headache to begin. Pt was seen in OV 06/17/24 with PCP at which time report of findings for left temporalhead area were pending. Pt reports taking imitrex at 4am today without effect. Pt is finished with prednisone and no more oxycodone available for pain. Pt is calling in request for something else forheadache. Headache remains in the left temporal area. Pt is advised will forward this information to [facility] nursing team and PCP for follow up and Pt agreed with this plan. Protocol Used: Headache (Adult) Protocol-Based Disposition: Callback or Video Visit by PCP within 1 Hour Positive Triage Question: * Severe headache and not relieved by pain meds * All higher-acuity triage questions were negative Care Advice Discussed: * Pain Medicines * Rest for Headache * Cold Pack for Headache * Stretching * Reasons To Call Back - Severe headache persists over 2 hours after pain medicine - Headache lasts over 24 hours despite using a pain medicine - You become worse * Telephone Encounter - Demetri Hernandez - 06/19/2024 12:11 PM EDT Symptom: Headache Outcome: Transfer to a nurse or provider NOW! Reason: Sudden worst headache of life now The caller accepted this outcome documented in this encounter Plan of Treatment Upcoming Encounters Date Type Department Care Team (Late st Contact Info) Description 07/15/2025 10:00 AM EDT Medication Management [facility] [address] [place] [address] Raegan Bhardwaj, PharmD [address] [place] [address] 07/31/2025 11:30 AM EDT Office Visit [facility] [address] [place] [address] Fany James MD [address] [place] [address] documented as of this encounter Visit Diagnoses Not on filedocumented in this encounter Additional Health Concerns Assessment Noted Time PHQ-9 Depression Total Score: 14 023 11:56 AM EDT documented as of this encounter Care Teams Combat Rifle Crewmember Relationship Specialty Start Date End Date Fany James MD [address] [place] [address] PCP - General Internal Medicine 07/28/20 Carmen Madsen Dispatcher Chief Coal SlurryPharmacy Technologist 01/22/24 [employer] 01/25/25 04/06/25 documented as of this encounter
--- OUTSIDE RECORDS SUMMARY | 2025-06-27 12:35 | XMS_ITS | Clinical Summary ---
Author Organization [employer] Address [address] [place] [address] Care Team Providers Care Roaster Supervisor Name Role Phone Fany James MD Primary Care Provider Allergies Active Allergy Reactions Criticality Noted Date Comments Hydrocodone-Acetaminophen Itching 12/08/2022 Latex Itching 12/08/2022 Medications * This document contains information received from the source organization and may not represent a complete record from that organization. albuterol (2.5 MG/3ML) 0.083% nebulizer solutionIndicat ions:Moderate persistent asthma without complication Take 3 mL (2.5 mg) by nebulization every 4 (four) hours if needed for wheezing. 75 mL 11 Active Blood Pressure Monitor kitIndications: Hypertension, unspecified type Check Blood Pressure once daily and when symptomatic 1 kit Active cetirizine (ZyrTEC) 10 MG tabletIndicatio ns:Seasonal allergies Take 1 tablet (10 mg) by mouth Once daily. 90 tablet 3 024 2024 Active tolterodine LA (Detrol LA) 2 MG 24 hr capsuleIndicati ons:Incontinenc e in female Take 1 capsule (2 mg) by mouth Once per day. Do not crush, chew, or split. 30 capsule 11 024 2024 Active cholecalciferol (Vitamin D-3) 25 MCG (1000 UT) tabletIndicatio ns:Osteopenia of lumbar spine,Osteopeni a of lumbar spine Take 1 tablet (25 mcg) by mouth Once per day. 60 tablet 3 03/07/2 025 Active DULoxetine (Cymbalta) [address] capsuleIndicati ons:Compression fracture of thoracic vertebra, unspecified thoracic vertebral level, sequela,Chronic pain syndrome,Anxiet y Take 2 capsules (60 mg) by mouth Once per day. Do not crush or chew. 60 capsule 025 2025 Active Azelastine HCl 137 MCG/SPRAY solutionIndicat ions:Seasonal allergies ADMINISTER 1 SPRAY INTO EACH NOSTRIL 2 TIMES DAILY. USE IN EACH NOSTRIL DIRECTED 30 mL 025 Active aspirin 81 MG EC tabletIndicatio ns:NSTEMI (non-ST elevated myocardial infarction) (CMS/HCC) Take 1 tablet (81 mg) by mouth Once per day. 30 tablet 025 Active atorvastatin (Lipitor) 40 MG tablet Take 1 tablet (40 mg) by mouth at bedtime. 90 tablet 025 Active budesonide-form oterol (Symbicort) 160-4.5 MCG/ACT inhalerIndicati ons:Moderate persistent asthma without complication inhale 2 puff by inhalation route 2 times every day in the morning and evening 1 each 025 Active metoprolol succinate XL (Toprol-XL) 25 MG 24 hr tabletIndicatio ns:Chronic heart failure with preserved ejection fraction (HFpEF, >= 50%) (CMS/HCC) Take 1 tablet (25 mg) by mouth Once per day. Do not crush or chew. 30 tablet 025 Active gabapentin (Neurontin) 300 MG capsuleIndicati ons:Seizure-lik e activity (CMS/HCC) Take 1 capsule (300 mg) by mouth 3 times daily. 270 capsule 025 Active levETIRAcetam (Keppra) 500 MG tabletIndicatio ns:Seizure-like activity (CMS/HCC) Take 1 tablet (500 mg) by mouth 2 times daily. 60 tablet 025 Active SUMAtriptan (Imitrex) 25 MG tabletIndicatio ns:Chronic migraine without aura without status migrainosus, not intractable TAKE 1 TABLET BY MOUTH ONCE IF NEEDED FOR MIGRAINE FOR UP TO 1 DOSE (BULK) 9 tablet 1 07/23/2 025 Active lidocaine (Lidoderm) 5 % patchIndication s:Compression fracture of thoracic vertebra, unspecified thoracic vertebral level, sequela APPLY 1 PATCH TOPICALLY PER DAY. REMOVE AND DISCARD PATCH WITHIN 12 HOURS OR DIRECTED BY (BULK) 30 patch 2 Active Ventolin HFA 108 (90 Base) MCG/ACT inhalerIndicati ons:Moderate persistent asthma without complication INHALE 2 PUFFS EVERY 6 HOURS IF NEEDED FOR WHEEZING (BULK) 18 g 2 Active Varenicline Tartrate, Starter, (Chantix Starting Month ) 0.5 MG X 11 & 1 MG X 42 tablet therapy packIndications :Tobacco dependence syndrome Take 1 tablet by mouth 2 times daily. Titrate per package instructions. 53 each Active losartan (Cozaar) 25 MG tablet Take 1 tablet (25 mg) by mouth Once per day. 90 tablet 1 Active naltrexone (Depade) 50 MG tablet Take 1 tablet (50 mg) by mouth Once per day. 30 tablet 2 Active ondansetron (Zofran) 4 MG tablet Take 1 tablet (4 mg) by mouth every 8 (eight) hours if needed for nausea or vomiting for up to 7 days. 20 tablet 025 2024 Active naproxen (Naprosyn) 500 MG tablet Take 1 tablet (500 mg) by mouth 2 times daily. 60 tablet 2024 Active Nebulizer System All-In-One miscIndications :Moderate persistent asthma without complication To use every 6 hours as needed. 1 each 023 2024 Discontinued(M ed list cleanup (will not trigger notification to Pharmacy)) famotidine (Pepcid) 20 MG tablet Take 20 mg by mouth every 12 (twelve) hours. 024 2024 Discontinued(M ed list cleanup (will not trigger notification to Pharmacy)) ketorolac (Acular) 0.5 % ophthalmic solution PLEASE SEE ATTACHED FOR DETAILED DIRECTIONS 024 2024 Discontinued(M ed list cleanup (will not trigger notification to Pharmacy)) albuterol (Ventolin HFA) 108 (90 Base) MCG/ACT inhalerIndicati ons:Moderate persistent asthma without complication Inhale 2 puffs every 6 (six) hours if needed for wheezing. 18 g 3 024 2024 Discontinued lidocaine (Lidoderm) 5 % patchIndication s:Compression fracture of thoracic vertebra, unspecified thoracic vertebral level, sequela Apply 1 patch topically Once per day. Remove & discard patch within 12 hours or as directed by MD. 30 patch 3 025 2024 Discontinued losartan (Cozaar) 25 MG tablet Take 25 mg by mouth Once per day. 2024 Discontinued(R eorder (will not trigger notification to Pharmacy)) naltrexone (Depade) 50 MG tablet Take 50 mg by mouth Once per day. 2024 Discontinued(R eorder (will not trigger notification to Pharmacy)) Active Problems Problem Noted Date Diagnosed Date CAD in [place] artery 06/17/2025 History of urinary incontinence 06/17/2025 HLD (hyperlipidemia) 06/17/2025 HTN (hypertension) 06/17/2025 Compression fracture of thor acic vertebra, unspecified thoracic vertebral level, sequela 02/19/2025 Alcoholism 02/19/2025 Compression fracture of T12 vertebra, sequela Assessment & Plan (02/19/2025 3:41 PM EDT): Pt attended and participated in chronic pain group today - good engagement with group model of care - continue to use combination of non-pharmacological modalities to address pain - followup in 2-4 weeks for ongoing painting and potting of plants NSTEMI (non-ST elevated myocardial infarction) 0 02/03/2025 Assessment & Plan (02/03/2025 12:00 PM EDT): Pt appears stable today Encouraged pt to take daily aspirin and metoprolol. Sent refills for both Sent pt home with appt information for cardiology, appointment is scheduled for february Encouraged smoking cessation Chronic pain syndrome 02/03/2025 Assessment & Plan (02/03/2025 12:01 PM EDT): Pt plans to incorporate more physical activity in her day She plans to find a facility with a pool to do water aerobics I referred her to pain management as well Anxiety 02/03/2025 Assessment & Plan (02/03/2025 12:02 PM EDT): Plan to start duloxetine 30 mg daily for chronic pain and anxiety Also referred pt to [facility] Seizure-like activity 02/03/2025 Assessment & Plan (02/03/2025 12:02 PM EDT): Pt has quit drinking alcohol Plan to f/u with neurology, has appt scheduled for february Chronic heart failure with p reserved ejection fraction (HFpEF, >= 50%) 02/03/2025 Assessment & Plan (02/03/2025 12:03 PM EDT): Plan to f/u with cardiology in February Nodule of lower lobe of right lung 02/03/2025 Assessment & Plan (02/03/2025 12:05 PM EDT): Nodule <8mm, per Uptodate guidelines CT recommended in 12 months due to patient risk factors (smoking) COPD (chronic obstructive pulmonary disease) 09/2024 Closed fracture of left clavicle with routine he aling 05/23/2023 Assessment & Plan (05/23/2023 11:57 AM EDT): Patient fell on 05/15, went to er found with left clavicle fracture, left tibia fx, patient is schedulled for ortho follow up this week, she is asking for short term rehab, due to difficulty in completing daily activities, will send request to nurses Osteopenia of lumbar spine 03/30/2023 Depression 12/08/2022 Asthma 09/04/2012 Pain in joint involving lower leg 05/13/2011 Assessment & Plan (01/31/2024 7:43 AM EDT): Cont following with Ortho Call office after complete physical therapy per Ortho recommendation to proceed with consideration/eval to determine if motorized scooter appropriate Tobacco dependence syndrome 03/11/2011 Assessment & Plan (02/03/2025 11:58 AM EDT): Pt plans to continue to use NRT patches to cut down on cigarette smoking I strongly encouraged cessation today due to her comorbidites Pt reports that her anxiety increases her desire to smoke so we will target treating and controlling her anxiety to help eliminate smoking Referred to Assessment & Plan (01/31/2024 7:44 AM EDT): -Encouraged smoking cessation resources such as pharmacomtherapy, [facility] smoking cessation group, and [facility] pharmacy smoking cessation clinic -Start NRT patches and gum Migraine 10/21/2010 Assessment & Plan (02/03/2025 11:56 AM EDT): Pt migraines are uncontrolled as pt having daily attacks We will increase her sumatriptan dose from 25mg to 50mg daily. Also provided counseling to pt if migraine persists >2 hours after taking first dose, make take another dose for a maximum of 200mg daily. Pt is taking metoprolol for her CHF w/ preserved ejection fraction. Provided education that this is also a preventative therapy for migraines and I encouraged her to take this daily. Assessment & Plan (06/01/2023 1:45 PM EDT): Patient refer having daily headaches, that worsen with loud noises/bright lights. Will prescribe sumatriptan to be taken in addition to ibuprofen as needed, call back if worsening Encounters Date Type Department Care Team Description 06/27/2025 11:15 AM EDT Office Visit [facility] [address] [place] [address] Yojana Blel MD Chronic pain syndrome (Primary Dx) 06/27/2025 Travel 06/27/2025 Telephone [facility] [address] [place] [address] Fany James MD Nurse Triage 06/20/2025 Refill [facility] [address] [place] [address] Raegan Bhardwaj PharmD Tobacco dependence syndrome (Primary Dx) 06/17/2025 1:00 PM EDT Telemedicine [facility] [address] [place] [address] Raegan Bhardwaj PharmD Chronic heart failure with preserved ejection fraction (HFpEF, >= 50%) ([facility]) (Primary Dx); Primary hypertension; Chronic migraine without aura without status migrainosus, not intractable; Persistent depressive disorder; Tobacco dependence syndrome 06/17/2025 Patient Outreach [facility] [address] [place] [address] Fany James MD 06/17/2025 Patient Outreach [facility] [address] [place] [address] Fany James MD Care Coordination (C3CM f/u call- [facility]) 06/12/2025 Telephone [facility] [address] [place] [address] Fany James MD No Show 06/11/2025 Telephone [facility] [address] [place] [address] Fany James MD 06/09/2025 Patient Outreach [facility] [address] [place], [place] [phone] Fany James MD Care Coordination (C3/CM F/U) 06/06/2025 Orders Only [facility] [address] [place] [address] Fany James MD Chronic migraine without aura without status migrainosus, not intractable (Primary Dx); Persistent depressive disorder; Chronic heart failure with preserved ejection fraction (HFpEF, >= 50%) (CMS/[facility]) 06/05/2025 Patient Outreach [facility] [address] [place] [address] [phone] Fany James MD Care Management (C3CM follow up call) 06/03/2025 Refill [facility] [address] [place] [address] Fany James MD Compression fracture of thoracic vertebra, unspecified thoracic vertebral level, sequela; Moderate persistent asthma without complication 05/23/2025 Patient Outreach [facility] [address] [place] [phone] Fany James MD Care Management (C3 TC #1-lvm) 05/23/[address] [facility] [address] [place] [address] Fany James MD 05/22/2025 Patient Outreach [facility] [address] [place], [place] [phone] Fany James MD Care Coordination (C3/CM LVM) 05/16/[address] [facility] [address] [place] [address] Fany James MD 05/13/2025 Refill [facility] [address] [place] [address] Fany James MD Chronic migraine without aura without status migrainosus, not intractable 05/05/2025 Orders Only [facility] [address] [place] [address] Antoine Wallace MD Seizure-like activity (CMS/HCC) 05/05/2025 Patient Outreach [facility] [address] [place] [address] Fany James MD 05/02/2025 Telephone [facility] [address] [place] [address] Fany James MD Nurse Triage 04/30/2025 Patient Outreach [facility] [address] [place] [address] Fany James MD Care Coordination (C3/CM F/U) 04/24/2025 Telephone [facility] [address] [place], [place] [phone] Fany James MD Med Refill 04/18/2025 Orders Only [facility] [address] [place], [place] [phone] Fany James MD Seizure-like activity (CMS/HCC) (Primary Dx) 04/18/2025 Patient Outreach [facility] [address] [place] [address] Fany James MD Care Coordination (C3CM f/u call) 04/08/2025 Travel 04/03/2025 Patient Outreach [facility] [address] [place] [address] Fany James MD Care Coordination (C3/CM F/U) 04/03/2025 Patient Outreach [facility] [address] [place] [address] Fany James MD 04/01/2025 Telephone [facility] [address] [place] [address] Fany James MD Medication Question from Last 3 Months Immunizations Immunization Administration Dates Next Due Influenza injectable quadriv alent IIV4 with preservative 07/22/2015 Influenza, Split (incl. purified surface antigen ) 08/02/2013,07/04/2012 Pneumococcal Conjugate PCV 20 01/29/2024 Pneumococcal Polysaccharide PPSV23 09/12/2015 Tdap 04/14/2016 Social History Tobacco Use Types Packs/Day Years Used Date Smoking Tobacco: Every Day Cigarettes 0.5 45 Passive Smoke Exposure: Current Smokeless Tobacco: Never Tobacco Cessation:Ready to Q uit: Yes; Counseling Given: Yes Alcohol Use Standard Drinks/Week Comments Not Currently [...] not to disclose 2024 3:08 PM EDT Last Filed Vital Signs Vital Sign Reading Time Taken Comments Blood Pressure 140/86 06/27/2025 11:25 AM EDT Pulse 101 06/27/2025 11:25 AM EDT Temperature 36.8 C (98.2 F) 06/27/2025 11:25 AM EDT Respiratory Rate 20 06/27/2025 11:25 AM EDT Oxygen Saturation 96% 06/27/2025 11:25 AM EDT Inhaled Oxygen Concentration - - Weight 72.1 kg (159 lb) 06/27/2025 11:25 AM EDT Height 162.6 cm (5' 4 ) 03/07/2025 1:34 PM EDT Body Mass Index 27.29 03/07/2025 1:34 PM EDT Plan of Treatment Upcoming Encounters Date Type Department Care Team (Late st Contact Info) Description 07/15/2025 10:00 AM EDT Medication Management [facility] [address] [place] [address] Raegan Bhardwaj PharmD [address] [place] [address] 07/31/2025 11:30 AM EDT Office Visit [facility] [address] [place] [address] Fany James MD [address] [place] [phone] Health Maintenance Due Date Last Done Comments CT Colonography 1962 Dental Oral Exam 1962 Dental Prophylaxis 1962 Dental X-Ray: Bitewings 1962 Dental X-Ray: Full Mouth 1962 FIT DNA/Cologuard 1962 FIT 1962 FOBT 1962 HIV Screening 1960 Sigmoidoscopy 1962 Disability Screening 1962 Pap Smear 1983 Cervical Cancer Screening 1992 HPV/Cotest 1992 Lung Cancer Screening 2012 Zoster Vaccines (1 of 2) 2012 Colonoscopy 04/13/2022 04/13/2017 Colorectal Cancer Screening 04/13/2022 RSV Patients and Patients Aged 60 years or older (1 - Risk 60-74 years 1-dose series) 2022 COVID-19 Vaccine (1 - 2023-2 5 season) 2025 Influenza Vaccine (#1) 2025 5, 08/02/2013, 07/04/2012 Mammogram 09/16/2025 09/16/2023 Alcohol/Substance Use Screening 02/03/2026 02/03/2025 Depression Screening 02/06/2026 02/06/2025, 02/06/2025 SDOH Screening 02/07/2026 02/07/2025 DTaP/Tdap/Td Vaccines (2 - T d or Tdap) 04/14/2026 04/14/2016 Tobacco Screening 06/27/2026 06/27/2025 Lipid Panel 08/17/2028 08/17/2023, 09/09/2020 Pneumococcal Vaccine: 50+ Years Completed 01/29/2024, 09/12/2015 Hepatitis C Screening Completed 09/05/2024 HIB Vaccines Aged Out No longer eligi ble based on patient's age to complete this topic HPV Vaccines Aged Out No longer eligi ble based on patient's age to complete this topic Hepatitis A Vaccines Aged Out No long er eligible [...] patient's age to complete this topic Meningococcal Vaccine Aged Out No alexander jose eligible based on patient's age to complete this topic RSV under 20 months Aged Out No longe r eligible based on patient's age to complete this topic Rotavirus Vaccines Aged Out No longer eligible based on patient's age to complete this topic Procedures Procedure Name Priority Date/Time Associated Diagnosis Comments POCT URINALYSIS DIPSTICK Routine 06/27/2025 11:50 AM EDT Chronic pain syndrome POCT RAPID COVID ANTIGEN Routine 06/27/2025 11:50 AM EDT Chronic pain syndrome HEPATITIS PANEL, GENERAL Routine 09/05/2024 11:03 AM EST Transaminitis BI MAMMOGRAM SCREENING TOMOSYNTHESIS BILATERAL Routine 09/16/2023 10:38 AM EST LIPID PANEL, STANDARD Routine 08/17/2023 11:46 AM EDT Annual physical exam HM COLONOSCOPY Routine 04/13/2017 from Last 3 Months or Most Recently Relevant to Health Maintenance Results * POCT Rapid Covid-19 BinaxNOW (06/27/2025 11:50 AM EDT) Rapid COVID Ag Negative QC Media Lot # [id number] Lot# Expiration Date [id number] Swab 06/27/2025 11:5 0 AM EDT Yojana Bell MD POINT OF CARE TEST ENTER/EDIT ORDERABLES Final Result * (ABNORMAL) POCT Urinalysis (06/27/2025 11:50 AM [...] CARE TEST ENTER/EDIT ORDERABLES Final Result * Hepatitis A,B,C Profile (09/05/2024 11:03 AM EST) Hepatitis A IgM Nonreactive Nonreactive [facility] Comment:IgM antibodies to LARUEN V not detected; does not exclude earlyacute or recovered HAV infection. ~Hepatitis B Surface Antibody NONREACTIVE Nonreactive [facility] Comment:Nonreactive: < 8.00 mIU/mL Hepatitis B Core Antibody Nonreactive Nonreactive [facility] Hepatitis C Antibody Nonreactive Nonreactive [facility] Comment:Antibodies to HCV no t detected; does not exclude early acuteHCV infection. Hepatitis B Surface Ag Negative Negative [facility] Blood Venous blood specimen / Unknown 09/05/2024 11:03 AM EST 09/05/2024 2:10 PM EST Fany James MD LAB BLOOD ORDERABLES Final Result [facility] [address] [place] [phone] * BI Mammogram Screening Tomosynthesis Bilateral (09/16/2023 10:38 AM EST) Anatomical Region Laterality Modality Breast Bilateral Mammography 09/16/2023 10:3 8 AM EST Narrative 09/22/2023 8:50 AM EST [facility] [address] [place] [address] [place] [address] Mammography Report Signed Patient: Radha Koroma MR#: [id number] 28 : 1960 Acct:[id number] Age/Sex: 63 / F ADM Date: 09/16/23 Loc: [facility] Attending Dr: Fany James MD Ordering Physician: Fany James MD Results: 1 Negative Date of Service: 09/16/23 Follow Up: 1 Year From Orig inal Mammogram Procedure(s): MM tomosynthesis screening BI Accession Number(s): [id number] cc: Fany James MD EXAMINATION: MM SCREENING DIGITAL BREAST TOMOSYNTHESIS, BILATERAL CLINICAL INFORMATION: Screening. Asymptomatic. COMPARISON: Mammography: This study is compared with prior exams dating back to 2015. TECHNIQUE: Digital breast tomosynthesis is performed in both the craniocaudal and mediolateral oblique views along with computer-aided detection (CAD). Synthesized 2D images are generated from the tomosynthesis. FINDINGS: The breasts are almost entirely fatty (ACR BI-RADS breast composition Category a). There are no significant masses, abnormal calcifications, or other abnormalities. MM/MM tomosynthesis screening BI IMPRESSION: No mammographic evidence of malignancy. ASSESSMENT: BI-RADS BI-RADS 1 - Negative RECOMMENDATION: Routine annual mammography screening. 1 year F/U This examination should not preclude the clinical evaluation of a suspicious palpable abnormality. This patient's information was entered into a reminder system with a target due date for their next mammogram. Dictated By: Jacqueline Cheema MD Signed By: <Electronically signed by Jacqueline Cheema MD in OV> 09/22/23 0847 DD/ 1038 TD/TT: Senior Budget Analyst: Procedure Note Donotuseinterpreter, Image - 09/22/2023 [facility] [address] [place] [address] Mammography Report Signed Patient: July KoromaR#: [id number] 28 : 1960cct:[id number] Age/Sex: 63 / FADM Date: 09/16/23 Loc: [facility] Attending Dr: Fany James MD Ordering Physician: Fany James MDResults: 1 Negative Date of Service: 09/16/23Follow Up: 1 Year From [facility] Mammogram Procedure(s): MM tomosynthesis screening BI Accession Number(s): [id number] cc: Fany James MD EXAMINATION: MM SCREENING DIGITAL BREAST TOMOSYNTHESIS, BILATERAL CLINICAL INFORMATION: Screening. Asymptomatic. COMPARISON: Mammography: This study is compared with prior exams dating back to 2015. TECHNIQUE: Digital breast tomosynthesis is performed in both the craniocaudal and mediolateral oblique views along with computer-aided detection (CAD). Synthesized 2D images are generated from the tomosynthesis. FINDINGS: The breasts are almost entirely fatty (ACR BI-RADS breast composition Category a). There are no significant masses, abnormal calcifications, or other abnormalities. MM/MM tomosynthesis screening BI IMPRESSION: No mammographic evidence of malignancy. ASSESSMENT: BI-RADS BI-RADS 1 - Negative RECOMMENDATION: Routine annual mammography screening. 1 year F/U This examination should not preclude the clinical evaluation of a suspicious palpable abnormality. This patient's information was entered into a reminder system with a target due date for their next mammogram. Dictated By: Jacqueline Cheema MD Signed By: <Electronically signed by Jacqueline Cheema MD in OV> 09/22/23 0847 DD/ 1038 TD/TT: Senior Budget Analyst: us Fany James MD IMG BI PROCEDURES Final Res ult * (ABNORMAL) Lipid Panel, Standard (08/17/2023 11:46 AM EDT) Triglycerides 98 <150 mg/dL [facility] Comment:Desirable Triglyceri de: less than 150 mg/dLBorderline High Triglyceride 150-199 mg/dLHigh Triglyceride: 200-499 mg/dLVery High Triglyceride: greater than or equal to 5OO mg/dL Cholesterol 246(H) <200 mg/dL [facility] Comment:Desirable Cholestero l: less than 200 mg/dLBorderline High Cholesterol: 200-239 mg/dLHigh Cholesterol: greater than 239 mg/dL LDL Cholesterol Calculated 95 <100 mg/dL [facility] Comment:Desirable LDL: less than 100 mg/dLNear Optimal/Above Optimal LDL: 110- 129 mg/dLBorderline High LDL: 130-159 mg/dLHigh LDL: 160-189 mg/dLVery High LDL: greater than or equal to 190 mg/dL HDL Cholesterol 132 >40 mg/dL [facility] Comment:Desirable HDL: great er than 40 mg/dL Note: This HDL assay may give artificially low results in patients with liver disease. Blood Venous blood specimen / Unknown 08/17/2023 11:46 AM EDT 08/17/2023 2:13 PM EDT Fany James MD LAB BLOOD ORDERABLES Final Result [facility] [address] [place] [address] [phone] * Colonoscopy (04/13/2017) Colonoscopy Normal Normal Narrative Lorena Zurita - 04/13/2017 Recommended 5 year follow up Historical Provider HEALTH MAINTENANCE Final Result from Last 3 Months or Most Recently Relevant to Health Maintenance [place] [address] [place] [address] C[place] [employer] [employer] [place] ADULT Care Teams Roaster Supervisor Relationship Specialty Start Date End Date Fany James MD [address] [place] [phone] PCP - General Internal Medicine 07/28/20 Carmen Madsen Jig Boring Machine Set Up OperatorHuman Resources Operations Coordinator 01/22/24
--- OUTSIDE RECORDS SUMMARY | 2025-06-27 12:35 | XMS_ITS | Encounter Summary ---
Author Organization [employer] Address 75 [facility] 7t [place] [address] Care Team Providers Care Stores Laborer Name Role Phone Fany James MD Primary Care Provider [phone] Encounter Details Date Type Department Care Team (Late st Contact Info) Description 07/03/2024 Orders Only [facility] [address] [place], [place] [phone] ProviderMarcellus MD Social History Tobacco Use Types Packs/Day Years [...] 10:00 AM EDT Medication Management [facility] MED & PEDS [address] [place] [address] Raegan Bhardwaj, PharmD 230 [place] [address] 07/31/2025 11:30 AM EDT Office Visit [facility] MED [facility] 505 [place] [address] Fany James MD [address] [place] [address] documented as of this encounter Procedures Procedure Name Priority Date/Time Associated Diagnosis Comments SURGICAL PATHOLOGY Routine 06/04/2024 3:00 PM EDT documented in this encounter Results * Surgical Pathology (06/04/2024 3:00 PM EDT) us Historical Provider LAB PATHOLOGY ORDERABLES Final Result documented in this encounter Visit Diagnoses Not on filedocumented in this encounter Additional Health Concerns Assessment Noted Time PHQ-9 Depression Total Score: 14 023 11:56 AM EDT documented as of this encounter Care Teams Stores Laborer Relationship Specialty Start Date End Date Fany James MD [address] [place] [address] PCP - General Internal Medicine 07/28/20 Carmen Madsen Manager Of RecruitingNeck Cutter 01/22/24 [employer] 01/25/25 04/06/25 documented as of this encounter
--- OUTSIDE RECORDS SUMMARY | 2025-06-27 12:35 | XMS_ITS | Encounter Summary ---
Author Organization [employer] Address 75 [facility] 7t [place] [address] Care Team Providers Care Salesperson Wigs Name Role Phone Fany James MD Primary Care Provider [phone] Encounter Details Date Type Department Care Team (Latest Contact Info) Description 06/27/2025 Travel Social History Tobacco Use Types Packs/Day Years [...] Description 07/15/2025 10:00 AM EDT Medication Management [facility] MED & PEDS [address] [place] [address] Raegan Bhardwaj, PharmD 230 [place] [address] 07/31/2025 11:30 AM EDT Office Visit [facility] MED & PEDS [address] [place] [address] Fany aJmes MD 505 [place] [address] documented as of this encounter Visit Diagnoses Not on filedocumented in this encounter Additional Health Concerns Assessment Noted Time PHQ-9 Depression Total Score: 4 02/07/20 25 11:17 AM EDT documented as of this encounter Care Teams Salesperson Wigs Relationship Specialty Start Date End Date Fany James MD [address] [place] [address] PCP - General Internal Medicine 07/28/20 Carmen Madsen Knifer UpImplementation Specialist Payroll 01/22/24 documented as of this encounter
--- OUTSIDE RECORDS SUMMARY | 2025-06-27 12:35 | XMS_ITS | Encounter Summary ---
Author Organization [employer] Address 75 [facility] 7 [place] [address] Care Team Providers Care Pe Manager Name Role Phone Fany James MD Primary Care Provider +- [phone] Reason for Visit * Reason Comments Med Refill Encounter Details Date Type Department Care Team ([facility] st Contact Info) Description 07/25/2024 Refill [facility] MED & PEDS [address] [place], [place] [phone] Fany James MD 505 [place] [address] Hypertension, unspecified type Social History Tobacco Use Types Packs/Day Years [...] Description 07/15/2025 10:00 AM EDT Medication Management [facility] MED & PEDS [address] [place] [address] Raegan Bhardwaj, PharmD 230 [place] [address] 07/31/2025 11:30 AM EDT Office Visit [facility] MED & PEDS [address] [place] [address] Fany James MD [address] [place] [address] documented as of this encounter Visit Diagnoses Diagnosis Hypertension, unspecified type documented in this encounter Additional Health Concerns Assessment Noted Time PHQ-9 Depression Total Score: 14 023 11:56 AM EDT documented as of this encounter Care Teams Pe Manager Relationship Specialty Start Date End Date Fany James MD [address] [place] [address] PCP - General Internal Medicine 07/28/20 Carmen Madsen Video EditorNeedle Polisher 01/22/24 [employer] 01/25/25 04/06/25 documented as of this encounter
--- OUTSIDE RECORDS SUMMARY | 2025-06-27 12:35 | XMS_ITS | Encounter Summary ---
Author Organization [employer] Address 75 [facility] 7t [place] [address] Care Team Providers Care Platform Consultant Name Role Phone Fany James MD Primary Care Provider [phone] Encounter Details Date Type Department Care Team ([facility] st Contact Info) Description 04/16/2024 Orders Only [facility] CH[facility] MED & PEDS [address] [place], [place] [phone] Fany James MD 505 [place] [address] Social History Tobacco Use Types Packs/Day Years [...] Description 07/15/2025 10:00 AM EDT Medication Management [facility] MED & PEDS [address] [place] [address] Raegan Bhardwaj, PharmD 230 [place] [address] 07/31/2025 11:30 AM EDT Office Visit [facility] MED & PEDS [address] [place] [address] Fany James MD 505 [place] [address] documented as of this encounter Visit Diagnoses Not on filedocumented in this encounter Additional Health Concerns Assessment Noted Time PHQ-9 Depression Total Score: 14 023 11:56 AM EDT documented as of this encounter Care Teams Platform Consultant Relationship Specialty Start Date End Date Fany James MD 505 [place] [address] PCP - General Internal Medicine 07/28/20 Carmen Madsen Acid RegeneratorFuel Management Handler 01/22/24 [employer] 01/25/25 04/06/25 documented as of this encounter
--- OUTSIDE RECORDS SUMMARY | 2025-06-27 12:36 | XMS_ITS | Encounter Summary ---
Author Organization [employer] Address 75 [facility] 7t [place] [address] Care Team Providers Care Adjunct Business Instructor Name Role Phone Fany James MD Primary Care Provider [phone]- [phone] Reason for Visit * Reason Onset Date Comments Med Refill 03/19/2025 Encounter Details Date Type Department Care Team ([facility] st Contact Info) Description 03/19/2025 Telephone [facility] MEDICINE [address] [place] [address] Fany James MD [address] [place] [address] Med Refill Social History Tobacco Use Types Packs/Day Years Used Date Smoking Tobacco: Former Cigarettes 0.5 45 Passive Smoke Exposure: Current Smokeless Tobacco: Never Comments:Has stopped smoking about a month ago. Still using her nicotine patches. Alcohol Use Standard Drinks/Week Comments Not Currently [...] encounter Miscellaneous Notes * Telephone Encounter - Elissa Ortega LPN - 03/28/2025 2:04 PM EDT The patient needs to call and confirm not the pharmacy. * Telephone Encounter - Louis Yap - 03/28/2025 10:36 AM EDT TC from [facility] requesting medication refills to be sent to their pharmacy. Pharmacy confirmed that patient has transferred to this location. * Telephone Encounter - Elissa Ortega LPN - 03/19/2025 1:57 PM EDT Patient needs to call and confirm she is switching pharmacies. * Telephone Encounter - Owen Varela - 03/19/2025 1:38 PM EDT TC from pt requesting medication refill. Medications needing refill: aspirin 81 MG EC tablet atorvastatin (Lipitor) 40 MG tablet budesonide-formoterol (Symbicort) 160-4.5 MCG/ACT inhaler levETIRAcetam (Keppra) 500 MG tablet metoprolol succinate XL (Toprol-XL) 25 MG 24 hr tablet nicotine (Nicoderm CQ) 14 MG/24HR patch To be sent to: [facility] [place], [place] - [address] [place] [address] documented in this encounter Plan of Treatment Upcoming Encounters Date Type Department Care Team (Late st Contact Info) Description 07/15/2025 10:00 AM EDT Medication Management [facility] MED & PEDS 505 [place] [address] Raegan Bhardwaj, PharmD 230 [place] [address] 07/31/2025 11:30 AM EDT Office Visit [facility] MED & PEDS [address] [place] [address] Fany James MD [address] [place] [address] documented as of this encounter Visit Diagnoses Not on filedocumented in this encounter Additional Health Concerns Assessment Noted Time PHQ-9 Depression Total Score: 4 02/07/20 25 11:17 AM EDT documented as of this encounter Care Teams Adjunct Business Instructor Relationship Specialty Start Date End Date Fany James MD [address] [place] [address] PCP - General Internal Medicine 07/28/20 Carmen Madsen Sales Support ManagerOphthalmic Technician 01/22/24 [employer] 01/25/25 04/06/25 documented as of this encounter
--- OUTSIDE RECORDS SUMMARY | 2025-06-27 12:36 | XMS_ITS | Encounter Summary ---
Author Organization [employer] Address 75 [facility] 7t [place] [address] Care Team Providers Care Furnace Checker Name Role Phone Fany James MD Primary Care Provider Encounter Details Date Type Department Care Team (Late Contact Info) Description 06/05/2023 Orders Only [facility] CHC MED & PEDS [address] [place] [address] Fany James MD [address] [place] [address] Closed nondisplaced fracture of left clavicle with routine healing, unspecified part of clavicle, subsequent encounter (Primary Dx) Social History Tobacco Use Types Packs/Day Years Used Date Smoking Tobacco: Every Day Cigarettes 0.5 45 Passive Smoke Exposure: Current Smokeless Tobacco: Never Alcohol Use Standard Drinks/Week Comments Not Currently 0 (1 standard drink = 0.6 oz pur e alcohol) Depression Answer Date Recorded Patient Health Questionnaire-9 Score 8 12/08/2022 Depression Answer Date Recorded Patient Health Questionnaire-2 Score 4 12/08/2022 Comments Unknown Sex and Gender Information Value [...] Description 07/15/2025 10:00 AM EDT Medication Management [facility] MED & PEDS [address] [place] [address] Raegan Bhardwaj, PharmD 230 [place] [address] 07/31/2025 11:30 AM EDT Office Visit [facility] MED & PEDS [address] [place] [address] Fany James MD 505 [place] [address] documented as of this encounter Visit Diagnoses Diagnosis Closed nondisplaced fracture of left clavicle with routine healing, unspecified part of clavicle, subsequent encounter- Primary documented in this encounter Additional Health Concerns Assessment Noted Time PHQ-9 Depression Total Score: 8 12/08/19 23 9:22 AM EST documented as of this encounter Care Teams Furnace Checker Relationship Specialty Start Date End Date Fany James MD 505 [place] [address] PCP - General Internal Medicine 07/28/20 Carmen Madsen Hotel Front Desk AgentAssociate Faculty 01/22/24 [employer] 01/25/25 04/06/25 documented as of this encounter
--- OUTSIDE RECORDS SUMMARY | 2025-06-27 12:36 | XMS_ITS | Encounter Summary ---
Author Organization [employer] Address 75 [facility] 7t [place] [address] Care Team Providers Care Enroute Controller Name Role Phone Fany James MD Primary Care Provider [phone]- [phone] Encounter Details Date Type Department Care Team ([facility] st Contact Info) Description 04/18/2025 Orders Only [facility] CHC MED & PEDS [address] [place], [place] [phone] Fany James MD [address] [place] [address] Seizure-like activity (CMS/HCC) (Primary Dx) Social History Tobacco Use Types [...] 10:00 AM EDT Medication Management [facility] MED & PEDS [address] [place] [address] Raegan Bhardwaj, PharmD 230 [place] [address] 07/31/2025 11:30 AM EDT Office Visit [facility] MED & PEDS [address] [place] [address] Fany James MD [address] [place] [address] documented as of this encounter Visit Diagnoses Diagnosis Seizure-like activity (CMS/HCC)- Primary documented in this encounter Additional Health Concerns Assessment Noted Time PHQ-9 Depression Total Score: 4 02/07/20 25 11:17 AM EDT documented as of this encounter Care Teams Enroute Controller Relationship Specialty Start Date End Date Fany James MD [address] [place] [address] PCP - General Internal Medicine 07/28/20 Carmen Madsen Metal Drilling Machine OperatorBase Engineer 01/22/24 documented as of this encounter
--- OUTSIDE RECORDS SUMMARY | 2025-06-27 12:36 | XMS_ITS | Encounter Summary ---
Author Organization [employer] Address 75 [facility] 7t [place] [address] Care Team Providers Care Motor Vehicle Parts Interpreter Name Role Phone Fany James MD Primary Care Provider Reason for Referral * Imaging (Routine) - Closed Specialty Diagnoses / Procedures Referred By Hanane griffith Referred To Contact Radiology Diagnoses Visit for screening mammogram Procedures BI Mammogram Screening Bilateral Fany James MD [address] [place] [address] Phone: tel: fax: [facility] fax: Referral ID Status Reason Start Date Expiration Date Visits Re quested Visits Authorized [id number] Closed 08/17/2023 08/16/2024 1 1 Encounter Details Date Type Department Care Team ([facility] st Contact Info) Description 08/17/2023 Orders Only [facility] CHC MED & PEDS [address] [place] [address] Fany James MD [address] [place] [address] Visit for screening mammogram (Primary Dx) Social History Tobacco Use Types [...] PM EDT documented as of this encounter Functional Status * Over the past 2 weeks, how often have you been bothered by any of the following problems? Question Answer Date of Assessment Author Patient Health Questionnaire-2 Score 4 07/24 11:56 AM EDT Vijaya Mcgovern [place] * If you checked off any problems on this questionnaire so far, Question Answer Date of Assessment Author How difficult have these problems made it for you to do your work, take care of things at home, or get along with other people? Extremely difficult 08/17/2023 11:56 AM EDT Vijaya Mcgovern [place] * Over the past 2 weeks, how often have you been bothered by any of the following problems? Question Answer Date of Assessment Author Little interest or pleasure in doing things More than half the days 08/17/2023 11:56 AM Vijaya Nunez [place] Feeling down, depressed, or hopeless More than half the days 08/17/2023 11:56 AM Vijaya Nunez [place] Trouble falling or staying asleep, or sleeping too much More than half the days 08/17/2023 11:56 AM Vijaya Nunez [place] Feeling tired or having little energy More than half the days 08/17/2023 11:56 AM Vijaya Nunez [place] Poor appetite or overeating Nearly every day 08/17/2023 11:56 AM Vijaya Nunez [place] Feeling bad about yourself - or that you are a failure or have let yourself or your family down Not at all 08/17/2023 11:56 AM Vijaya Nunez [place] Trouble concentrating on things, such as reading the newspaper or watching television Several days 08/17/2023 11:56 AM Vijaya Nunez MA Moving or speaking so slowly that other people could have noticed? Or the opposite - being so fidgety or restless that you have been moving around a lot more than usual. More than half the days 08/17/2023 11:56 AM Vijaya Nunez MA Thoughts that you would be better off or hurting yourself in some way Not at all 08/17/2023 11:56 AM Vijaya Nunez MA Patient Health Questionnaire-9 Score 14 08/17/2023 11:56 AM Vijaya Nunez [place] documented as of this encounter Plan of Treatment Upcoming Encounters Date Type Department Care Team (Late st Contact Info) Description 07/15/2025 10:00 AM EDT Medication Management [facility] MED & PEDS [address] [place] [address] Raegan Bhardwaj PharmD [address] [place] [address] 07/31/2025 11:30 AM EDT Office Visit [facility] MED & PEDS 505 [place] [address] Fany James MD [address] [place] [address] Scheduled Orders Name Type Priority Associated Diagnoses Orde r Schedule BI Mammogram Screening Bilateral Imaging Routine Visit for screening mammogram Expected: 08/17/2023, Expires: 10/17/2024 documented as of this encounter Visit Diagnoses Diagnosis Visit for screening mammogram- Primary documented in this encounter Additional Health Concerns Assessment Noted Time PHQ-9 Depression Total Score: 14 023 11:56 AM EDT documented as of this encounter Care Teams Motor Vehicle Parts Interpreter Relationship Specialty Start Date End Date Fany James MD [address] [place] [address] PCP - General Internal Medicine 07/28/20 Carmen Madsen Product Safety LeadBusiness Representative 01/22/24 [employer] 01/25/25 04/06/25 documented as of this encounter
--- OUTSIDE RECORDS SUMMARY | 2025-06-27 12:36 | XMS_ITS | Encounter Summary ---
Author Organization [employer] Address 75 [facility] 7t [place] [address] Care Team Providers Care Clinic Clerk Name Role Phone Fany James MD Primary Care Provider [phone] Encounter Details Date Type Department Care Team ([facility] st Contact Info) Description 01/20/2025 Orders Only [facility] CHC MED & PEDS [address] [place], [place] [phone] Provider, MD Marcellus Social History Tobacco Use Types Packs/Day Years [...] Recorded Patient Health Questionnaire-2 Score 4 08/17/2023 Internet Access Answer Date Recorded Internet Access Q1 Yes 01/07/2025 Internet Access Q2 Not on file 01/07/2025 Comments Unknown Sex and Gender Information Value [...] [facility] MED & PEDS [address] [place] [address] Raegan Bhardwaj PharmD [address] [place] [address] 07/31/2025 11:30 AM EDT Office Visit [facility] MED & PEDS [address] [place] [address] Fany James MD 505 [place] [address] documented as of this encounter Procedures Procedure Name Priority Date/Time Associated Diagnosis Comments CT CHEST W CONTRAST Routine 01/19/2025 8:[address] THORACIC SPINE WO CONTRAST Routine 01/17/2025 8:47 AM EDT ECG 12-LEAD Routine 01/16/2025 8:44 AM EDT documented in this encounter Results * CT Chest w/ Contrast (01/19/2025 8:37 AM EDT) Anatomical Region Laterality Modality Body, Chest Computed Tomogra phy us Historical Provider MD LEON CT PROCEDURES Final R esult * CT Throacic Spine w/o Contrast (01/17/2025 8:47 AM EDT) Anatomical Region Laterality Modality Spine, T-spine Computed Tomogra phy us Historical Provider IMG CT PROCEDURES Final R esult * ECG 12 lead (01/16/2025 8:44 AM EDT) us Historical Provider ECG ORDERABLES Final Res ult documented in this encounter Visit Diagnoses Not on filedocumented in this encounter Additional Health Concerns Assessment Noted Time PHQ-9 Depression Total Score: 14 023 11:56 AM EDT documented as of this encounter Care Teams Clinic Clerk Relationship Specialty Start Date End Date Fany James MD [address] [place] [address] PCP - General Internal Medicine 07/28/20 Carmen Madsen Polygraph ExaminerCommercial Director 01/22/24 [employer] 01/25/25 04/06/25 documented as of this encounter
--- OUTSIDE RECORDS SUMMARY | 2025-06-27 12:36 | XMS_ITS | Encounter Summary ---
Author Organization [employer] Address 75 [facility] 7t [place] [address] Care Team Providers Care Machine Repairer Name Role Phone Fany James MD Primary Care Provider [phone] Encounter Details Date Type Department Care Team ([facility] st Contact Info) Description 12/27/2023 Orders Only [facility] CHC MED & PEDS [address] [place], [place] [phone] Fany James MD 505 [place] [address] Acute pain of left knee (Primary Dx) Social History Tobacco Use Types [...] Description 07/15/2025 10:00 AM EDT Medication Management [facility] MED & PEDS [address] [place] [address] Raegan Bhardwaj, PharmD 230 [place] [address] 07/31/2025 11:30 AM EDT Office Visit [facility] MED & PEDS [address] [place] [address] Fany James MD 505 [place] [address] documented as of this encounter Visit Diagnoses Diagnosis Acute pain of left knee- Primary documented in this encounter Additional Health Concerns Assessment Noted Time PHQ-9 Depression Total Score: 14 023 11:56 AM EDT documented as of this encounter Care Teams Machine Repairer Relationship Specialty Start Date End Date Fany James MD [address] [place] [address] PCP - General Internal Medicine 07/28/20 Carmen Madsen Per Diem InterpreterRubber Heel And Sole Press Tender 01/22/24 [employer] 01/25/25 04/06/25 documented as of this encounter
--- OUTSIDE RECORDS SUMMARY | 2025-06-27 12:36 | XMS_ITS | Encounter Summary ---
Author Organization [employer] Address 75 [facility] 7t [place] [address] Care Team Providers Care Back End Engineer Name Role Phone Fany James MD Primary Care Provider [phone] Encounter Details Date Type Department Care Team ([facility] st Contact Info) Description 01/17/2025 Orders Only [facility] CHC MED & PEDS [address] [place], [place] [phone] Provider, MD Marcellus Social History Tobacco Use [...] Upcoming Encounters Date Type Department Care Team ([facility] st Contact Info) Description 07/15/2025 10:00 AM EDT Medication Management [facility] [place] MED & PEDS [address] [place] [address] Raegan Bhardwaj PharmD [address] [place] [address] 07/31/2025 11:30 AM EDT Office Visit [facility] [place] MED & PEDS [address] [place] [address] Fany James MD [address] [place] [address] documented as of this encounter Procedures Procedure Name Priority Date/Time Associated Diagnosis Comments CT HEAD WO CONTRAST Routine 01/16/2025 11:21 AM EDT ECG 12-LEAD Routine 01/16/2025 8:59 AM EDT ECG 12-LEAD Routine 01/16/2025 8:56 AM EDT documented in this encounter Results * CT Head w/o Contrast (01/16/2025 11:21 AM EDT) Anatomical Region Laterality Modality Head, Neck Computed Tomogra phy us Historical Provider MD LEON CT PROCEDURES Final R esult * ECG 12 lead (01/16/2025 8:59 AM EDT) us Historical Provider ECG ORDERABLES Final Res ult * ECG 12 lead (01/16/2025 8:56 AM EDT) us Historical Provider ECG ORDERABLES Final Res ult documented in this encounter Visit Diagnoses Not on filedocumented in this encounter Additional Health Concerns Assessment Noted Time PHQ-9 Depression Total Score: 14 023 11:56 AM EDT documented as of this encounter Care Teams Back End Engineer Relationship Specialty Start Date End Date Fany James MD [address] [place] [address] PCP - General Internal Medicine 07/28/20 Carmen Madsen Nut FormerStock Checker 01/22/24 [employer] 01/25/25 04/06/25 documented as of this encounter
--- OUTSIDE RECORDS SUMMARY | 2025-06-27 12:36 | XMS_ITS ---
Author Organization [employer] Address 75 [facility] 7t [place] [address] Care Team Providers Care Diabetes Trainer Name Role Phone Fany James MD Primary Care Provider [phone] CM Complex Status:Enrolled (Active) Start date:01/17/2025 Enrollment date:02/06/2025 Enrollment reason:ADT Feed Overview ADT- Pt admitted to [facility] on 01/16/25. Case Team Name Relationship Phone Earlene Bajwa RN(Responsible Staff) Registered Nurse [phone] Continued Care and Services Coordination
--- OUTSIDE RECORDS SUMMARY | 2025-06-27 12:36 | XMS_ITS | Encounter Summary ---
Author Organization [employer] Address [address] [facility] 7 [place] [address] Care Team Providers Care Weatherization Technician Name Role Phone Fany James MD Primary Care Provider +- [phone] Reason for Referral * Imaging (Routine) - Pending Review Specialty Diagnoses / Procedures Referred By Contkhalida t Referred To Contact Radiology Diagnoses Transaminitis Procedures US Abdomen Complete Fnay James MD [address] [place] [address] Phone: tel: fax: [address] Phone: tel: fax: Referral ID Status Reason Start Date Expiration Date V isits Requested Visits Authorized [id number] Pending Review 09/04/2024 09/04/2025 1 1 Encounter Details Date Type Department Care Team (Late st Contact Info) Description 09/04/2024 Orders Only [facility] MED & PEDS [address] [place] [address] Fany James MD [address] [place] [address] Transaminitis (Primary Dx) Social History Tobacco Use Types [...] Description 07/15/2025 10:00 AM EDT Medication Management [facility] MED & PEDS [address] [place] [address] Raegna Bhardwaj PharmD [address] [place] [address] 07/31/2025 11:30 AM EDT Office Visit [facility] MED & PEDS [address] [place] [address] Fany James MD [address] [place] [address] Scheduled Orders Name Type Priority Associated Diagnoses Orde r Schedule US Abdomen Complete Imaging Routine Transaminitis Expected: 09/04/2024, Expires: 09/04/2025 documented as of this encounter Procedures Procedure Name Priority Date/Time Associated Diagnosis Comments HEPATITIS PANEL, GENERAL Routine 09/05/2024 11:03 AM EST Transaminitis documented in this encounter Results * Hepatitis A,B,C Profile (09/05/2024 11:03 AM EST) Hepatitis A IgM Nonreactive Nonreactive [facility] Comment:IgM antibodies to LAUREN V not detected; does not exclude earlyacute or recovered HAV infection. ~Hepatitis B Surface Antibody NONREACTIVE Nonreactive [facility] Comment:Nonreactive: < 8.00 mIU/mL Hepatitis B Core Antibody Nonreactive Nonreactive [facility] Hepatitis C Antibody Nonreactive Nonreactive [facility] Comment:Antibodies to HCV no t detected; does not exclude early acuteHCV infection. Hepatitis B Surface Ag Negative Negative [facility] Blood Venous blood specimen / Unknown 09/05/2024 11:03 AM EST 09/05/2024 2:10 PM EST Fany James MD LAB BLOOD ORDERABLES Final Result [facility] [address] [place] [address] [phone] documented in this encounter Visit Diagnoses Diagnosis Transaminitis- Primary Nonspecific elevation of levels of transaminase or lactic acid dehydrogenase (LDH) documented in this encounter Additional Health Concerns Assessment Noted Time PHQ-9 Depression Total Score: 14 023 11:56 AM EDT documented as of this encounter Care Teams Weatherization Technician Relationship Specialty Start Date End Date Fany James MD [address] [place] [address] PCP - General Internal Medicine 07/28/20 Carmen Madsen Change Room AttendantEducational Technologist 01/22/24 [employer] 01/25/25 04/06/25 documented as of this encounter
--- OUTSIDE RECORDS SUMMARY | 2025-06-27 12:36 | XMS_ITS | Encounter Summary ---
Author Organization [employer] Address [address] [facility] 7t [place] [address] Care Team Providers Care Surveying Or Spatial Science Technician Name Role Phone Fany James MD Primary Care Provider [phone] Encounter Details Date Type Department Care Team (Late st Contact Info) Description 02/28/2025 Orders Only [facility] [address] [place], [place] [phone] ProviderMarcellus MD Social History Tobacco Use Types [...] Upcoming Encounters Date Type Department Care Team ([facility] st Contact Info) Description 07/15/2025 10:00 AM EDT Medication Management [facility] MED & PEDS [address] [place] [address] Raegan Bhardwaj PharmD [address] [place] [address] 07/31/2025 11:30 AM EDT Office Visit [facility] MED & PEDS [address] [place] [address] Fany James MD [address] [place] [address] documented as of this encounter Procedures Procedure Name Priority Date/Time Associated Diagnosis Comments ECG 12-LEAD Routine 02/27/2025 9:20 AM EDT documented in this encounter Results * ECG 12 lead (02/27/2025 9:20 AM EDT) us Historical Provider ECG ORDERABLES Final Res ult documented in this encounter Visit Diagnoses Not on filedocumented in this encounter Additional Health Concerns Assessment Noted Time PHQ-9 Depression Total Score: 4 02/07/20 25 11:17 AM EDT documented as of this encounter Care Teams Surveying Or Spatial Science Technician Relationship Specialty Start Date End Date Fany James MD [address] [place] [address] PCP - General Internal Medicine 07/28/20 Carmen Madsen Drywall ForemanForest Products Gatherer 01/22/24 [employer] 01/25/25 04/06/25 documented as of this encounter
--- OUTSIDE RECORDS SUMMARY | 2025-06-27 12:36 | XMS_ITS | Encounter Summary ---
Author Organization [employer] Address [address] [place] [address] 7 [place] [address] Care Team Providers Care Net Application Architect Name Role Phone Fany James MD Primary Care Provider [phone] Reason for Referral * Consultation (Routine) - Authorized Specialty Diagnoses / Procedures Referred By Contac t Referred To Contact Pharmacy Diagnoses Chronic migraine without aura without status migrainosus, not intractable Persistent depressive disorder Chronic heart failure with preserved ejection fraction (HFpEF, >= 50%) (CMS/[facility]) Fany James MD [address] [place] [address] Phone: tel: fax: Referral ID Status Reason Start Date Expiration Date Visits Requested Visits Authorized [id number] Authorized Continuity of Care 06/06/2025 06/06/2026 6 6 Encounter Details Date Type Department Care Team (Late st Contact Info) Description 06/06/2025 Orders Only [facility] MED & PEDS [address] [place] [address] Fany James MD [address] [place] [phone] Chronic migraine without aura without status migrainosus, not intractable (Primary Dx); Persistent depressive disorder; Chronic heart failure with preserved ejection fraction (HFpEF, >= 50%) (CMS/HCC) Social History Tobacco Use Types Packs/Day Years [...] Description 07/15/2025 10:00 AM EDT Medication Management [facility] MED & PEDS [address] [place], [place] [phone] Raegan Bhardwaj, PharmD [address] [place] [address] 07/31/2025 11:30 AM EDT Office Visit [facility] MED & PEDS [address] [place] [address] Fany James MD [address] [place] [address] Scheduled Referrals Name Type Priority Associated Diagnoses Orde r Schedule Referral to Pharmacy [facility] Outpatient Referral Routine Chronic migraine without aura without status migrainosus, not intractable Persistent depressive disorder Chronic heart failure with preserved ejection fraction (HFpEF, >= 50%) (CMS/HCC) Ordered: 06/06/2025 documented as of this encounter Visit Diagnoses Diagnosis Chronic migraine without aura without status migrainosus, not intractable- Primary Persistent depressive disorder Chronic heart failure with preserved ejection fraction (HFpEF, >= 50%) (CMS/HCC) documented in this encounter Additional Health Concerns Assessment Noted Time PHQ-9 Depression Total Score: 4 02/07/20 25 11:17 AM EDT documented as of this encounter Care Teams Net Application Architect Relationship Specialty Start Date End Date Fany James MD [address] [place] [address] PCP - General Internal Medicine 07/28/20 Carmen Madsen Inside Sales Territory ManagerScrap Sorter 01/22/24 documented as of this encounter
--- OUTSIDE RECORDS SUMMARY | 2025-06-27 12:36 | XMS_ITS | Patient Health Record ---
Author Organization [facility] Address [address] [place] [address] Care Team Providers Care Airplane And Engine Inspector Name Role Phone Willy Monahan [phone] Reason For Referral No Information Plan Of Treatment No Information
--- OUTSIDE RECORDS SUMMARY | 2025-06-27 12:36 | XMS_ITS | Encounter Summary ---
Author Organization [facility] [employer] Address 75 [facility] 7t [place] [address] Care Team Providers Care Prison Keeper Name Role Phone Fany James MD Primary Care Provider [phone] Reason for Visit * Reason Onset Date Comments Med Refill 04/16/2024 Encounter Details Date Type Department Care Team (Late st Contact Info) Description 04/16/2024 Refill [facility] MEDICINE [address] [place] [address] Fany James MD [address] [place] [address] Closed nondisplaced fracture of left clavicle with [...] encounter Miscellaneous Notes * Telephone Encounter - Kandy Reyes - 04/16/2024 10:50 AM EDT TC from pt requesting medication refill. Medications needing refill : oxyCODONE (Roxicodone) 5 MG immediate release tablet To be sent to: [facility]/pharmacy #[id number] documented in this encounter Plan of Treatment Upcoming Encounters Date Type Department Care Team (Late st Contact Info) Description 07/15/2025 10:00 AM EDT Medication Management [facility] MED & PEDS [address] [place] [address] Raegan Bhardwaj, PharmD [address] [place] [address] 07/31/2025 11:30 AM EDT Office Visit [facility] MED & PEDS [address] [place] [address] Fany James MD [address] [place] [address] documented as of this encounter Visit Diagnoses Diagnosis Closed nondisplaced fracture of left clavicle with routine healing, unspecified part of clavicle, subsequent encounter- Primary documented in this encounter Additional Health Concerns Assessment Noted Time PHQ-9 Depression Total Score: 14 023 11:56 AM EDT documented as of this encounter Care Teams Prison Keeper Relationship Specialty Start Date End Date Fany James MD [address] [place] [address] PCP - General Internal Medicine 07/28/20 Carmen Madsen Hot Water Heater InstallerWalking Dragline Oiler 01/22/24 [employer] 01/25/25 04/06/25 documented as of this encounter
--- OUTSIDE RECORDS SUMMARY | 2025-06-27 12:36 | XMS_ITS | Encounter Summary ---
Author Organization [employer] Address [address] [facility] 7t [place] [address] Care Team Providers Care Pack Operator Name Role Phone Fany James MD Primary Care Provider [phone] Reason for Visit * Reason Comments Med Refill Encounter Details Date Type Department Care Team ([facility] st Contact Info) Description 11/03/2024 Refill [facility] MED & PEDS [address] [place], [place] [phone] Fany James MD [address] [place] [address] Tobacco dependence syndrome; Tobacco dependence syndrome Social History Tobacco Use Types Packs/Day Years [...] Description 07/15/2025 10:00 AM EDT Medication Management [facility] MED & PEDS [address] [place] [address] Raegan Bhardwaj, PharmD [address] [place] [address] 07/31/2025 11:30 AM EDT Office Visit [facility] MED & PEDS [address] [place] [address] Fany James MD [address] [place] [address] documented as of this encounter Visit Diagnoses Diagnosis Tobacco dependence syndrome Tobacco use disorder documented in this encounter Additional Health Concerns Assessment Noted Time PHQ-9 Depression Total Score: 14 023 11:56 AM EDT documented as of this encounter Care Teams Pack Operator Relationship Specialty Start Date End Date Fany James MD [address] [place] [address] PCP - General Internal Medicine 07/28/20 Carmen Madsen Convention Services DirectorSeasoning Sprayer 01/22/24 [employer] 01/25/25 04/06/25 documented as of this encounter
--- OUTSIDE RECORDS SUMMARY | 2025-06-27 12:36 | XMS_ITS | Encounter Summary ---
Author Organization [employer] Address [address] [facility] 7t [place] [address] Care Team Providers Care Hand Bulldozer Name Role Phone Fany James MD Primary Care Provider [phone] Encounter Details Date Type Department Care Team ([facility] [place] [facility] st Contact Info) Description 03/22/2024 Orders Only [facility] MED & PEDS [address] [place], [place] [phone] Fany James MD [address] [place] [address] Microcytic anemia (Primary Dx) Social History Tobacco Use Types [...] AM EDT Medication Management [facility] MED & PEDS [address] [place] [address] Raegan Bhardwaj, PharmD [address] [place] [address] 07/31/2025 11:30 AM EDT Office Visit [facility] MED & PEDS [address] [place] [address] Fany James MD [address] [place] [address] Scheduled Orders Name Type Priority Associated Diagnoses Orde r Schedule Iron And Total Iron Binding Capacity Lab Routine Microcytic anemia Expected: 03/22/2024, Expires: 03/22/2025 Reticulocyte Count Lab Routine Microcytic anemia Expected: 03/22/2024, Expires: 03/22/2025 Ferritin Lab Routine Microcytic anemia Expected: 03/22/2024, Expires: 03/22/2025 documented as of this encounter Visit Diagnoses Diagnosis Microcytic anemia- Primary Unspecified iron deficiency anemia documented in this encounter Additional Health Concerns Assessment Noted Time PHQ-9 Depression Total Score: 14 023 11:56 AM EDT documented as of this encounter Care Teams Hand Bulldozer Relationship Specialty Start Date End Date Fany James MD [address] [place] [address] PCP - General Internal Medicine 07/28/20 Carmen Madsen Case Packer And SealerSupervisor Roving 01/22/24 [employer] 01/25/25 04/06/25 documented as of this encounter
--- OUTSIDE RECORDS SUMMARY | 2025-06-27 12:36 | XMS_ITS | Encounter Summary ---
Author Organization [employer] Address [address] [facility] 7 [place] [address] Care Team Providers Care Cafeteria Server Name Role Phone Fany James MD Primary Care Provider [phone]- [phone] Reason for Visit * Reason Onset Date Comments Medication Question 03/27/2024 Encounter Details Date Type Department Care Team ([facility] st Contact Info) Description 03/27/2024 Telephone [facility] MED & PEDS [address] [place] [address] Fany James MD [address] [place] [address] Medication Question Social History Tobacco Use Types Packs/Day Years [...] encounter Miscellaneous Notes * Telephone Encounter - Saira Lyons RN - 03/28/2024 10:27 AM EDT Pt asking fir a refill of Oxycodone 5mg, stated you agreed to cont med at the last visit on 03/21/24. Last refill on 03/21/24 qty 15 from an outside provider. Please advise. * Telephone Encounter - Kerline Montgomery - 03/27/2024 11:18 AM EDT TC from pt calling to inform last visit with pcp they went over pain medication and pr believes pcpwas going to continue prescribing medication below . Pt would like to know status on script . Medications needing refill : oxyCODONE (Roxicodone) 5 MG immediate release tablet To be sent to: [facility]/pharmacy #[id number] - [place], [place] - [address] [facility] documented in this encounter Plan of Treatment Upcoming Encounters Date Type Department Care Team (Late st Contact Info) Description 07/15/2025 10:00 AM EDT Medication Management [facility] MED & PEDS [address] [place] [address] Raegan Bhardwaj, PharmD [address] [place] [address] 07/31/2025 11:30 AM EDT Office Visit [facility] MED & PEDS [address] [place] [address] Fany James MD [address] [place] [address] documented as of this encounter Visit Diagnoses Diagnosis Closed nondisplaced fracture of left clavicle with routine healing, unspecified part of clavicle, subsequent encounter- Primary documented in this encounter Additional Health Concerns Assessment Noted Time PHQ-9 Depression Total Score: 14 023 11:56 AM EDT documented as of this encounter Care Teams Cafeteria Server Relationship Specialty Start Date End Date Fany James MD [address] [place] [address] PCP - General Internal Medicine 07/28/20 Carmen Madsen Filemaker DeveloperSurgical Services Manager 01/22/24 [employer] 01/25/25 04/06/25 documented as of this encounter
--- OUTSIDE RECORDS SUMMARY | 2025-06-27 12:36 | XMS_ITS | Encounter Summary ---
Author Organization [employer] Address [address] [facility] 7t [place] [address] Care Team Providers Care Cytopathology Technologist Name Role Phone Fany James MD Primary Care Provider [phone] Reason for Visit * Reason Onset Date Comments Nurse Triage 12/27/2023 Encounter Details Date Type Department Care Team (Late st Contact Info) Description 12/27/2023 Telephone [facility] MEDICINE [address] [place] [address] Fany James MD [address] [place] [address] Nurse Triage Social History Tobacco Use Types [...] housing situation today? I have angelalaly silva 08/09/[address] you [...] Telephone Encounter - Mikaela Mars RN - 12/27/2023 12:05 PM EST Triage call with [employer] Protection Specialist [place] [id number] Pt reports bad knee pain left knee. Pt reports injured knee last April and has had screws put inknee. Pt reports pain could be due to cold weather. Pt does have apt with orthopedic doctor . Pt has no pain medication and is asking for prescription for motrin/tylenol. Pt is advised will request prescription from PCP and will have [facility] nursing team follow up. Pt agrees with thisdisposition and plan. Pt is advised may take a day for prescription to be sent to pharmacy. Pharmacy information is accurate. Protocol Used: Knee Pain (Adult) Protocol-Based Disposition: Home Care Positive Triage Question: * Knee pain * All higher-acuity triage questions were negative Care Advice Discussed: * Reassurance and Education - Knee Pain * Pain Medicines * Pain Medicines - Extra Notes and Warnings * Reasons To Call Back - Moderate pain (e.g., limping) lasts more than 3 days - Mild pain lasts more than 7 days - Signs of infection occur (e.g., spreading redness, warmth, fever) - You become worse * Use a Cold Pack for Pain * Use Heat After 48 Hours for Pain * Telephone Encounter - Kandy Reyes - 12/27/2023 11:09 AM EST Symptom: Knee Pain - Not From Injury Outcome: Schedule an urgent appointment (within 1 hour) or talk to a nurse or provider soon Reason: Severe pain now The caller accepted this outcome documented in this encounter Plan of Treatment Upcoming Encounters Date Type Department Care Team (Late st Contact Info) Description 07/15/2025 10:00 AM EDT Medication Management [facility] MED & PEDS [address] [place] [address] Raegan Bhardwaj, PharmD [address] [place] [address] 07/31/2025 11:30 AM EDT Office Visit [facility] MED & PEDS [address] [place] [address] Fany James MD [address] [place] [address] documented as of this encounter Visit Diagnoses Not on filedocumented in this encounter Additional Health Concerns Assessment Noted Time PHQ-9 Depression Total Score: 14 023 11:56 AM EDT documented as of this encounter Care Teams Cytopathology Technologist Relationship Specialty Start Date End Date Fany James MD [address] [place] [address] PCP - General Internal Medicine 07/28/20 Carmen Madsen Change PersonInstructor Bus Trolley And Taxi 01/22/24 [employer] 01/25/25 04/06/25 documented as of this encounter
--- OUTSIDE RECORDS SUMMARY | 2025-06-27 12:36 | XMS_ITS | Encounter Summary ---
Author Organization [employer] Address 75 [facility] 7t [place] [address] Care Team Providers Care Photoengraving Machine Operator/Tender Name Role Phone Fany James MD Primary Care Provider [phone] Encounter Details Date Type Department Care Team (Late st Contact Info) Description 08/25/2023 Abstract [facility] MEDICINE [address] [place] [address] Lorena Zurita Social History Tobacco Use Types Packs/Day Years [...] Description 07/15/2025 10:00 AM EDT Medication Management [facility] MED & PEDS [address] [place], [place] [phone] Raegan Bhardwaj, PharmD [address] [place], [place] [phone] 07/31/2025 11:30 AM EDT Office Visit [facility] MED & PEDS [address] [place], [place] [phone] Fany James MD [address] [place], [place] [phone] documented as of this encounter Procedures Procedure Name Priority Date/Time Associated Diagnosis Comments COLONOSCOPY Routine 04/13/2017 documented in this encounter Results * Colonoscopy (04/13/2017) Colonoscopy Normal Normal Narrative Lorena Zurita - 04/13/2017 Recommended 5 year follow up us Historical Provider HEALTH MAINTENANCE Final Result documented in this encounter Visit Diagnoses Not on filedocumented in this encounter Additional Health Concerns Assessment Noted Time PHQ-9 Depression Total Score: 14 023 11:56 AM EDT documented as of this encounter Care Teams Photoengraving Machine Operator/Tender Relationship Specialty Start Date End Date Fany James MD [address] [place], [place] [phone] PCP - General Internal Medicine 07/28/20 Carmen Madsen Sales Promotion DirectorBuyer Tobacco Head 01/22/24 [employer] 01/25/25 04/06/25 documented as of this encounter
--- OUTSIDE RECORDS SUMMARY | 2025-06-27 12:36 | XMS_ITS | Encounter Summary ---
Author Organization [employer] Address [address] [facility] 7t [place] [address] Care Team Providers Care Soil Science Professor Name Role Phone Fany James MD Primary Care Provider [phone] Reason for Visit * Reason Onset Date Comments Med Refill 03/28/2024 Encounter Details Date Type Department Care Team ([facility] st Contact Info) Description 03/28/2024 Telephone [facility] MEDICINE [address] [place] [address] Fany James MD [address] [place] [address] Med Refill Social History Tobacco Use Types [...] * Telephone Encounter - Kandy Reyes - 03/28/2024 9:17 AM EDT TC from pt requesting medication refill. Medications needing refill : oxyCODONE (Roxicodone) 5 MG immediate release tablet To be sent to: [facility]/pharmacy #[id number] [place] [address] documented in this encounter Plan of Treatment Upcoming Encounters Date Type Department Care Team (Late st Contact Info) Description 07/15/2025 10:00 AM EDT Medication Management [facility] MED & PEDS [address] [place] [address] Raegan Bhardwaj, PharmD [address] [place] [address] 07/31/2025 11:30 AM EDT Office Visit [facility] MED & PEDS [address] [place], [place] [phone] Fany James MD [address] [place] [address] documented as of this encounter Visit Diagnoses Not on filedocumented in this encounter Additional Health Concerns Assessment Noted Time PHQ-9 Depression Total Score: 14 023 11:56 AM EDT documented as of this encounter Care Teams Soil Science Professor Relationship Specialty Start Date End Date Fany James MD [address] [place] [address] PCP - General Internal Medicine 07/28/20 Carmen Madsen Basketball PlayerApron Trimmer 01/22/24 [employer] 01/25/25 04/06/25 documented as of this encounter
--- OUTSIDE RECORDS SUMMARY | 2025-06-27 12:36 | XMS_ITS | Encounter Summary ---
Author Organization [employer] Address [address] [facility] [address]t [place] [address] Care Team Providers Care Garnett Machine Operator Name Role Phone Fany James MD Primary Care Provider [phone] Reason for Visit * Reason Onset Date Comments Med Refill 03/14/2025 Encounter Details Date Type Department Care Team ([facility] st Contact Info) Description 03/14/2025 Telephone [facility] MEDICINE [address] [place] [address] Fany James MD [address] [place] [address] Med Refill Social History Tobacco Use Types [...] Telephone Encounter - Elissa Ortega LPN - 03/14/2025 4:16 PM EDT No history of patient using [email or web address] patient needs to call and confirm she is switching pharmacies and names of medications needed. * Telephone Encounter - Malou Trevino - 03/14/2025 4:12 PM EDT Tc from [place] with [facility] requesting a new scrip for all medication documented in this encounter Plan of Treatment Upcoming Encounters Date Type Department Care Team (Late st Contact Info) Description 07/15/2025 10:00 AM EDT Medication Management [facility] MED & PEDS [address] [place], [place] [phone] Raegan Bhardwaj PharmD [address] [place] [address] 07/31/2025 11:30 AM EDT Office Visit [facility] MED & PEDS [address] [place] [address] Fany James MD [address] [place] [address] documented as of this encounter Visit Diagnoses Not on filedocumented in this encounter Additional Health Concerns Assessment Noted Time PHQ-9 Depression Total Score: 4 02/07/20 11:17 AM EDT documented as of this encounter Care Teams Garnett Machine Operator Relationship Specialty Start Date End Date Fany James MD [address] [place] [address] PCP - General Internal Medicine 07/28/20 Carmen Madsen Stock MixerSeafood Harvester 01/22/24 [employer] 01/25/25 04/06/25 documented as of this encounter
[2025-06-27 14:24] LABS: MANUAL DIFF FLAG NO
[2025-06-27 14:29] LABS: Hematocrit 38.6 % (37.0-47.0); Hemoglobin 13.1 g/dl (12.0-16.0); Imm Gran Abs Auto 0.04 X10*3/uL (0.00-0.03); Imm Gran Pct Auto 0.4 % (0.0-0.4); Lymphocytes Absolute Auto 1.3 X10*3/uL (1.2-4.9); Mean Corpuscular HGB Conc 33.9 g/dl (31.0-35.0); Mean Corpuscular Hemoglobin 29.8 pg (27.0-33.0); Mean Corpuscular Volume 87.7 fL (80.0-98.0); NRBC Abs Auto 0.000 X10*3/uL (0.0-0.012); NRBC Pct Auto 0.0 /100WBC (0.0-0.2); Platelet Count 219 X10*3/uL (160-400); Red Blood Count 4.40 X10*6/uL (4.20-5.50); White Blood Count 9.0 X10*3/uL (4.8-10.8)
[2025-06-27 14:55] LABS: Alanine Aminotransferase 11 U/L (0-31); Albumin Level 5.1 g/dL (3.5-5.0); Alkaline Phosphatase 112 U/L (39-117); Anion Gap 17 (12-20); Aspartate Amino Transferase 30 U/L (5-31); Blood Urea Nitrogen 6 mg/dL (9-16); Calcium 9.8 mg/dL (8.4-10.2); Carbon Dioxide 25 mmol/L (22-29); Chloride 96 mmol/L (96-108); Estimated Glomerular Filt Rate > 60; Lipase 9 U/L (8-78); Magnesium 2.1 mg/dL (1.6-2.6); Potassium 3.4 mmol/L (3.3-5.1); Sodium 135 mmol/L (135-145); Total Protein 8.5 g/dL (6.5-8.0)
[2025-06-27 15:20] LABS: Folate 8.5 ng/mL (> or = 4.0); Vitamin B12 378 pg/mL (200-900)
== END 2025-06-27 11:49 | disposition home or self-care (01) ==
LOC: HO.CHCLDS 11:48
PROVIDERS: Visit Provider Pediatrics
DX: G89.4 Chronic pain syndrome (principal)
CPT/HCPCS: 36415; 80048; 80076; 82607; 82746; 83690; 83735; 84443; 85025

== ENCOUNTER 2025-09-02 14:39 | Outpatient (REF) | payer MEDICAID, SELFPAY ==
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
--- OUTSIDE RECORDS SUMMARY | 2025-09-02 16:25 | XMS_ITS | Encounter Summary ---
Author Organization [employer] Address [address] [facility] 7t [place] [address] Care Team Providers Care Woodworking Machinist Name Role Phone Fany James MD Primary Care Provider Lianna Willett Unavailable [phone] Reason for Visit * Reason Onset Date Comments Pre-op Exam 01/17/2024 Encounter Details Date Type Department Care Team (Late st Contact Info) Description 01/17/2024 Telephone [facility] MEDICINE [address] [place] [address] Fany James MD [address] [place] [address] Pre-op Exam Social History Tobacco Use Types [...] Surgeon's name: Dr. Fishman Say Facility name: [facility] Surgeon's office number: [phone] Ext [phone] Surgeon's office fax number: [phone] Contact name (person you spoke with): Rafael Last office note from surgeon requested: Will be faxed documented in this encounter Plan of Treatment Upcoming Encounters Date Type Department Care Team (Late st Contact Info) Description 09/15/2025 1:30 PM EST Medication Management [facility] MED & PEDS [address] [place], [place] [phone] Raegan Bhardwaj, PharmD [address] [place] [address] 09/30/2025 1:45 PM EST Office Visit [facility] MED & PEDS [address] [place] [address] Fany James MD [address] [place] [address] documented as of this encounter Visit Diagnoses Not on filedocumented in this encounter Additional Health Concerns Assessment Noted Time PHQ-9 Depression Total Score: 14 023 11:56 AM EDT documented as of this encounter Care Teams Woodworking Machinist Relationship Specialty Start Date End Date Fany James MD [address] [place] [address] PCP - General Internal Medicine 07/28/20 Lianna Willett Registered Nurse 06/30/25 06/30/25 Carmen Madsen Pt EscortDirector Of Undergraduate Admissions 01/22/24 [employer] 01/25/25 04/06/25 documented as of this encounter
--- OUTSIDE RECORDS SUMMARY | 2025-09-02 16:25 | XMS_ITS | Encounter Summary ---
Author Organization [employer] Address [address] [facility] 7t [place] [address] Care Team Providers Care Commercial Escrow Assistant Name Role Phone Fany James MD Primary Care Provider [phone] Lianna Willett Unavailable [phone] Reason for Visit * Reason Onset Date Comments Nurse Triage 06/19/2024 Encounter Details Date Type Department Care Team (Late st Contact Info) Description 06/19/2024 Telephone [facility] MEDICINE [address] [place] [address] Fany James MD [address] [place] [address] Nurse Triage Social History Tobacco Use Types [...] Pt, message is left to speak with FRONT END SOFTWARE ENGINEER. FRONT END SOFTWARE ENGINEER was available and message below is given to Pt and Pt will restart prednisone as ordered. I am still waiting for the results of the biopsy from [facility]. I am going to resume prednisone in themeantime at 50 mg daily x one more week. Ms Radha oKroma will be contacted as soon as [facility] send us the result of the biopsy. * Telephone Encounter - Fany James MD - 06/19/2024 2:11 PM EDT I am still waiting for the results of the biopsy from [facility]. I am going to resume prednisone in themeantime at 50 mg daily x one more week. Ms Radha Koroma will be contacted as soon as [facility] send us the result of the biopsy. * Telephone Encounter - Mikaela Mars RN - 06/19/2024 12:46 PM EDT Triage call to [phone] and Pt FRONT END SOFTWARE ENGINEER answered. FRONT END SOFTWARE ENGINEER informed that [phone] is Pt number. Called Pt at [phone], Pt answered and reports that headache has [...] is advised will forward this information to [facility] nursing team and PCP for follow up [...] Description 09/15/2025 1:30 PM EST Medication Management [facility] MED & PEDS [address] [place] [address] Raegan Bhardwaj, PharmD [address] [place] [address] 09/30/2025 1:45 PM EST Office Visit [facility] MED & PEDS [address] [place] [address] Fany James MD [address] [place] [address] documented as of this encounter Visit Diagnoses Not on filedocumented in this encounter Additional Health Concerns Assessment Noted Time PHQ-9 Depression Total Score: 14 023 11:56 AM EDT documented as of this encounter Care Teams Commercial Escrow Assistant Relationship Specialty Start Date End Date Fany James MD [address] [place] [address] PCP - General Internal Medicine 07/28/20 Lianna Willett Registered Nurse 06/30/25 06/30/25 Carmen Madsen Real Estate ProcessorStereotype Molder 01/22/24 [employer] 01/25/25 04/06/25 documented as of this encounter
--- OUTSIDE RECORDS SUMMARY | 2025-09-02 16:25 | XMS_ITS | Encounter Summary ---
Author Organization [employer] Address [address] [facility] 7t [place] [address] Care Team Providers Care Rotary Screen Printing Machine Operator Name Role Phone Fany James MD Primary Care Provider [phone] Reason for Visit * Reason Comments Med Refill Encounter Details Date Type Department Care Team ([facility] st Contact Info) Description 09/02/2025 Refill [facility] MED & PEDS [address] [place] [address] Fany James MD [address] [place] [address] Tobacco dependence syndrome Social History Tobacco Use [...] encounter Miscellaneous Notes * Telephone Encounter - Malou Trevino - 09/02/2025 3:42 PM EST Tc from pt stating she want her medication at another pharmacy To be sent to: [facility]/pharmacy #[id number] documented in this encounter Plan of Treatment Upcoming Encounters Date Type Department Care Team (Late st Contact Info) Description 09/15/2025 1:30 PM EST Medication Management [facility] MED & PEDS [address] [place] [address] Raegan Bhardwaj, PharmD [address] [place] [address] 09/30/2025 1:45 PM EST Office Visit [facility] MED & PEDS [address] [place], [place] [phone] Fany James MD [address] [place] [address] documented as of this encounter Visit Diagnoses Diagnosis Tobacco dependence syndrome Tobacco use disorder documented in this encounter Additional Health Concerns Assessment Noted Time PHQ-9 Depression Total Score: 4 02/07/20 25 11:17 AM EDT documented as of this encounter Care Teams Rotary Screen Printing Machine Operator Relationship Specialty Start Date End Date Fany James MD [address] [place] [address] PCP - General Internal Medicine 07/28/20 Carmen Madsen Bottle AssemblerSectional Belt Mold Assembler 01/22/24 documented as of this encounter
--- OUTSIDE RECORDS SUMMARY | 2025-09-02 16:25 | XMS_ITS | Encounter Summary ---
Author Organization [employer] Address [address] [facility] 7t [place] [address] Care Team Providers Care Wine Consultant Name Role Phone Fany James MD Primary Care Provider [phone] Lianna Willett Unavailable [phone] Reason for Visit * Reason Onset Date Comments Nurse Triage 12/27/2023 Encounter Details Date Type Department Care Team (Late st Contact Info) Description 12/27/2023 Telephone [facility] MEDICINE [address] [place] [address] Fany James MD [address] [place] [address] Nurse Triage Social History Tobacco Use Types [...] 12/27/2023 12:05 PM EST Triage call with [employer] Automobile Assembler [place] [id number] Pt reports bad knee pain left knee. Pt reports injured knee last April and has had screws put inknee. Pt reports pain could be due to cold weather. Pt does have apt with orthopedic doctor . Pt has no pain medication and is asking for prescription for motrin/tylenol. Pt is advised will request prescription from PCP and will have [facility] nursing team follow up. Pt agrees with [...] PM EST Medication Management [facility] MED & PEDS [address] [place] [address] Raegan Bhardwaj, PharmD [address] [place] [address] 09/30/2025 1:45 PM EST Office Visit [facility] MED & PEDS [address] [place] [address] Fany James MD [address] [place] [address] documented as of this encounter Visit Diagnoses Not on filedocumented in this encounter Additional Health Concerns Assessment Noted Time PHQ-9 Depression Total Score: 14 023 11:56 AM EDT documented as of this encounter Care Teams Wine Consultant Relationship Specialty Start Date End Date Fany James MD [address] [place] [address] PCP - General Internal Medicine 07/28/20 Lianna Willett Registered Nurse 06/30/25 06/30/25 Carmen Madsen Sales Representative Door To DoorFund Development Manager 01/22/24 [employer] 01/25/25 04/06/25 documented as of this encounter
--- OUTSIDE RECORDS SUMMARY | 2025-09-02 16:25 | XMS_ITS | Clinical Summary ---
Author Organization [email or web address] Address [address] [facility] [address] [place] [address] Care Team Providers Care Wafer Batter Mixer Name Role Phone Fany James MD Primary Care Provider Allergies Active Allergy Reactions Criticality Noted Date Comments Hydrocodone-Acetaminophen Itching 12/08/2022 Latex Itching 12/08/2022 Medications * This document contains information received from the source organization and may not represent a complete record from that organization. albuterol (2.5 MG/3ML) 0.083% nebulizer solutionIndicati ons:Moderate persistent asthma without complication Take 3 mL (2.5 mg) by nebulization every 4 (four) hours if needed for wheezing. 75 mL 11 4 Active Blood Pressure Monitor kitIndications:H ypertension, unspecified type Check Blood Pressure once daily and when symptomatic 1 kit 4 Active cetirizine (ZyrTEC) 10 MG tabletIndication s:Seasonal allergies Take 1 tablet (10 mg) by mouth Once daily. 90 tablet 3 4 Active tolterodine LA (Detrol LA) 2 MG 24 hr capsuleIndicatio ns:Incontinence in female Take 1 capsule (2 mg) by mouth Once per day. Do not crush, chew, or split. 30 capsule 11 4 025 Active cholecalciferol (Vitamin D-3) 25 MCG (1000 UT) tabletIndication s:Osteopenia of lumbar spine,Osteopenia of lumbar spine Take 1 tablet (25 mcg) by mouth Once per day. 60 tablet 3 5 Active DULoxetine (Cymbalta) [address] capsuleIndicatio ns:Compression fracture of thoracic vertebra, unspecified thoracic vertebral level, sequela,Chronic pain syndrome,Anxiety Take 2 capsules (60 mg) by mouth Once per day. Do not crush or chew. 60 capsule 11 5 026 Active Azelastine HCl 137 MCG/SPRAY solutionIndicati ons:Seasonal allergies ADMINISTER 1 SPRAY INTO EACH NOSTRIL 2 TIMES DAILY. USE IN EACH NOSTRIL DIRECTED 30 mL 5 Active aspirin 81 MG EC tabletIndication s:NSTEMI (non-ST elevated myocardial infarction) ([facility]) Take 1 tablet (81 mg) by mouth Once per day. 30 tablet 11 5 Active atorvastatin (Lipitor) 40 MG tablet Take 1 tablet (40 mg) by mouth at bedtime. 90 tablet 3 5 Active budesonide-formo terol (Symbicort) 160-4.5 MCG/ACT inhalerIndicatio ns:Moderate persistent asthma without complication inhale 2 puff by inhalation route 2 times every day in the morning and evening 1 each 5 Active metoprolol succinate XL (Toprol-XL) 25 MG 24 hr tabletIndication s:Chronic heart failure with preserved ejection fraction (HFpEF, >= 50%) ([facility]) Take 1 tablet (25 mg) by mouth Once per day. Do not crush or chew. 30 tablet 11 5 Active gabapentin (Neurontin) 300 MG capsuleIndicatio ns:Seizure-like activity (CMS/HCC) ([facility]) Take 1 capsule (300 mg) by mouth 3 times daily. 270 capsule 5 Active SUMAtriptan (Imitrex) 25 MG tabletIndication s:Chronic migraine without aura without status migrainosus, not intractable TAKE 1 TABLET BY MOUTH ONCE IF NEEDED FOR MIGRAINE FOR UP TO 1 DOSE (BULK) 9 tablet 1 5 Active lidocaine (Lidoderm) 5 % patchIndications :Compression fracture of thoracic vertebra, unspecified thoracic vertebral level, sequela APPLY 1 PATCH TOPICALLY PER DAY. REMOVE AND DISCARD PATCH WITHIN 12 HOURS OR DIRECTED BY MD (BULK) 30 patch 2 5 Active Ventolin HFA 108 (90 Base) MCG/ACT inhalerIndicatio ns:Moderate persistent asthma without complication INHALE 2 PUFFS EVERY 6 HOURS IF NEEDED FOR WHEEZING (BULK) 18 g 2 5 Active Varenicline Tartrate, Starter, (Chantix Starting Month ) 0.5 MG X 11 & 1 MG X 42 tablet therapy packIndications: Tobacco dependence syndrome Take 1 tablet by mouth 2 times daily. Titrate per package instructions. 53 each 5 Active losartan (Cozaar) 25 MG tablet Take 1 tablet (25 mg) by mouth Once per day. 90 tablet 1 5 Active naltrexone (Depade) 50 MG tablet Take 1 tablet (50 mg) by mouth Once per day. 30 tablet 2 5 Active levETIRAcetam (Keppra) 500 MG tabletIndication s:Seizure-like activity (CMS/HCC) (HCC) TAKE 1 TABLET BY MOUTH TWICE A DAY 60 tablet 3 5 Active Active Problems Problem Noted Date Diagnosed Date CAD in [place] artery 06/17/2025 History of urinary incontinence 06/17/2025 HLD (hyperlipidemia) 06/17/2025 HTN (hypertension) 06/17/2025 Compression fracture of thor acic vertebra, unspecified thoracic vertebral level, sequela 02/19/2025 Alcoholism (CMS/HCC) 02/19/2025 Compression fracture of T12 vertebra, sequela [...] pain and anxiety Also referred pt to Seizure-like activity (CMS/HCC) 02/03/2025 Assessment & Plan (02/03/2025 12:02 PM [...] -Encouraged smoking cessation resources such as pharmacomtherapy, [facility] smoking cessation group, and [facility] pharmacy smoking cessation clinic -Start NRT patches [...] Encounters Date Type Department Care Team Description 09/02/2025 1:30 PM EST Office Visit [facility] [address] [place] [address] Fany James MD Primary hypertension (Primary Dx); Chronic migraine without aura without status migrainosus, not intractable; NSTEMI (non-ST elevated myocardial infarction) (HCC); Chronic obstructive pulmonary disease, unspecified COPD type (CMS/HCC) (HCC); Alcohol use disorder 09/02/2025 Refill [facility] [address] [place] [address] Fany James MD Tobacco dependence syndrome 09/02/2025 Telephone [facility] [address] [place] [address] Fany James MD Appointment 09/02/2025 Travel 08/22/2025 Patient Outreach [address] [address] Fany James MD Care Coordination ([facility] outreach for SDOH PT-1 and food needs-referral completed /) 08/21/[address] [address] Fany James MD PT-1 08/21/2025 Travel 08/20/2025 Telephone [facility] [address] [place] [address] Fany James MD chart prep 08/12/[address] [address] Fany James MD Nurse Triage 07/30/2025 Telephone [facility] [address] [place] [address] Fany James MD Chart Prep 07/23/2025 Refill [facility] [address] [place] [address] Fany James MD Seizure-like activity (CMS/HCC) (HCC) 07/15/2025 Travel 06/30/2025 Patient Outreach [address] [address] Fany James MD Care Management ([facility] graduation) 06/27/2025 11:15 AM EDT Office Visit [facility] [address] [place] [address] Yojana Bell MD Chronic pain syndrome (Primary Dx); Chronic heart failure with preserved ejection fraction (HFpEF, >= 50%) (CMS/HCC); Alcoholism (CMS/HCC) 06/27/2025 Travel 06/27/2025 Telephone [facility] [address] [place] [address] Fany James MD Nurse Triage 06/20/2025 Refill [facility] [address] [place] [address] Raegan Bhardwaj PharmD Tobacco dependence syndrome (Primary Dx) 06/17/2025 1:00 PM EDT Telemedicine [facility] [address] [place] [address] Raegan Bhardwaj PharmD Chronic heart failure with preserved ejection fraction (HFpEF, >= 50%) ([facility]) (Primary Dx); Primary hypertension; Chronic migraine without aura without status migrainosus, not intractable; Persistent depressive disorder; Tobacco dependence syndrome 06/17/2025 Patient Outreach [facility] [address] [place], [place] [phone] Fany James MD 06/17/2025 Patient Outreach [facility] [address] [place] [address] Fany James MD Care Coordination (C3CM f/u call- LV) 06/12/2025 Telephone [facility] [address] [place] [address] Fany James MD No Show 06/11/2025 Telephone [facility] [address] [place] [address] Fany James MD 06/09/2025 Patient Outreach [facility] [address] [place] [address] Fany James MD Care Coordination (C3/CM F/U) 06/06/2025 Orders Only [facility] [address] [place] [address] Fany James MD Chronic migraine without aura without status migrainosus, not intractable (Primary Dx); Persistent depressive disorder; Chronic heart failure with preserved ejection fraction (HFpEF, >= 50%) (CMS/HCC) 06/05/2025 Patient Outreach [address] [phone] Beauzile, Thevenin, MD Care Management (C3CM follow up call) 06/03/2025 Refill [facility] [address] [place] [address] Fany James MD Compression fracture of thoracic vertebra, unspecified thoracic vertebral level, sequela; Moderate persistent asthma without complication from Last 3 Months Immunizations Immunization Administration Dates Next Due Influenza injectable quadriv alent IIV4 with preservative 07/22/2015 Influenza, Split (incl. purified surface antigen ) 08/02/2013,07/04/2012 Influenza, seasonal, injectable, preservative fr ee 07/15/2025 Pneumococcal Conjugate PCV 20 01/29/2024 Pneumococcal Polysaccharide PPSV23 09/12/2015 Tdap 04/14/2016 Zoster, Recombinant 07/15/2025 Social History Tobacco Use Types Packs/Day Years Used Date Smoking Tobacco: Every Day Cigarettes 0.5 45 Passive Smoke Exposure: Current Smokeless Tobacco: Never Tobacco Cessation:Counseling Given: Yes Alcohol Use Standard Drinks/Week Comments [...] Pulse 79 09/02/2025 2:01 PM EST Temperature 36.8 C (98.2 F) 06/27/2025 11:25 AM EDT Respiratory Rate 20 09/02/2025 2:01 PM EST Oxygen Saturation 96% 09/02/2025 2:01 PM EST Inhaled Oxygen Concentration - - Weight 69.4 kg (153 lb) 09/02/2025 2:01 PM EST Height 162.6 cm (5' 4 ) 09/02/2025 2:01 PM EST Body Mass Index 26.26 09/02/2025 2:01 PM EST Plan of Treatment Upcoming Encounters Date Type Department Care Team (Late st Contact Info) Description 09/15/2025 1:30 PM EST Medication Management [facility] [address] [place] [address] Raegan Bhardwaj, PharmD [address] [place] [address] 09/30/2025 1:45 PM EST Office Visit [facility] [address] [place] [address] Fany James MD [address] [place] [address] Health Maintenance Due Date Last Done Comments CT Colonography 1962 Dental Oral Exam 1962 Dental Prophylaxis 1962 Dental X-Ray: Bitewings 1962 Dental X-Ray: Full Mouth 1962 FIT DNA/Cologuard 1962 FIT 1962 FOBT 1960 HIV Screening 1960 Sigmoidoscopy 1962 Disability Screening 1962 Pap Smear 1983 Cervical Cancer Screening 1992 HPV/Cotest 1992 Lung Cancer Screening 2012 Colonoscopy 04/13/2022 04/13/2017 Colorectal Cancer Screening 04/13/2022 RSV Patients and Patients Aged 60 years or older (1 - Risk 60-74 years 1-dose series) 2022 COVID-19 Vaccine (1 - season) 2025 Zoster Vaccines (2 of 2) 09/09/2025 07/15/2025 Mammogram 09/16/2025 09/16/2023 Alcohol/Substance Use Screening 02/03/2026 02/03/2025 Depression Screening 02/06/2026 02/06/2025, 02/07/20 SDOH Screening 02/07/2026 02/07/2025 DTaP/Tdap/Td Vaccines (2 - Td or Tdap) 04/14/2026 04/14/2016 Tobacco Screening 09/02/2026 09/02/2025 Lipid Panel 08/17/2028 08/17/2023, 09/09/2020 Pneumococcal Vaccine: 50+ Years Completed 01/29/2024, 09/12/2015 Hepatitis C Screening Completed 09/05/2024 Influenza Vaccine Completed 07/15/2025, , 08/02/2013, Additional history exists HIB Vaccines Aged Out No longer eligi [...] 06/27/2025 11:50 AM EDT Chronic pain syndrome MAGNESIUM Routine 06/27/2025 11:50 AM EDT Chronic pain syndrome LIPASE Routine 06/27/2025 11:50 AM EDT Chronic pain syndrome TSH W/REFLEX TO FT4 Routine 06/27/2025 1 1:50 AM EDT Chronic pain syndrome VITAMIN B12/FOLATE, SERUM PANEL Routine 06/27/2025 11:50 AM EDT Chronic pain syndrome HEPATIC FUNCTION PANEL Routine 11:50 AM EDT Chronic pain syndrome CBC WITH AUTO DIFFERENTIAL Routine 06/27/2025 11:50 AM EDT Chronic pain syndrome BASIC METABOLIC PANEL Routine 06/27/2025 11:50 AM EDT Chronic pain syndrome HEPATITIS PANEL, GENERAL Routine 09/05/2024 11:03 AM EST Transaminitis BI MAMMOGRAM SCREENING TOMOSYNTHESIS BILATERAL Routine 09/16/2023 10:38 AM EST LIPID PANEL, STANDARD Routine 08/17/2023 11:46 AM EDT Annual physical exam HM COLONOSCOPY Routine 04/13/2017 from Last 3 Months or Most Recently Relevant to Health Maintenance Results * POCT Rapid Covid-19 BinaxNOW (06/27/2025 11:50 AM EDT) Pathologist [facility] Rapid COVID Ag Negative QC Media Lot # [id number] Lot# Expiration Date 30,113 Swab 06/27/2025 11:5 0 AM EDT Yojana Bell MD POINT OF CARE TEST ENTER/EDIT ORDERABLES Final Result * Vitamin B12/Folate, Serum Panel (06/27/2025 11:50 AM EDT) Vitamin B12 378 200 - 900 pg/mL [facility] Comment:NORMAL 200-900 PG/ML INDETERMINATE 160-199 PG/ML DEFICIENT < 160 PG/ML Folate 8.5 > or = 4.0 ng/mL [facility] Comment:Reference Values:> o r = 4.0 ng/mL< 4.0 ng/mL suggests folate deficiency Methotrexate, aminopterin and folinic acid(leucovorin) are chemotherapeutic agents whose molecularstructures are similar to folate; therefore, the Architectfolate assay cannot be used for patients using these drugs. Blood Venous blood specimen / Unknown 06/27/2025 11:50 AM EDT 06/27/2025 2:21 PM EDT Yojana Bell MD LAB BLOOD ORDERABLES Final Re sult Performing Organization Address [facility]/ZIP Co de Phone Number [facility] [address] [place] [phone] * TSH W/Reflex to FT4 (06/27/2025 11:50 AM EDT) TSH reflex Free T4 0.96 0.32 - 4.0 uIU/mL [facility] Blood Venous blood specimen / Unknown 06/27/2025 11:50 AM EDT 06/27/2025 2:21 PM EDT Yojana Bell MD LAB BLOOD ORDERABLES Final Re sult Performing Organization Address [facility]/ZIP Co de Phone Number [facility] [address] [place] [phone] * (ABNORMAL) CBC auto differential (06/27/2025 11:50 AM EDT) White Blood Count 9.0 4.8 - 10.8 X10*3/uL [facility] Red Blood Count 4.40 4.20 - 5.50 X10*6/uL [facility] Hemoglobin 13.1 12.0 - 16.0 g/dl [facility] Hematocrit 38.6 37.0 - 47.0 % [facility] Mean Corpuscular Volume 87.7 80.0 - 98.0 fL [facility] Mean Corpuscular Hemoglobin 29.8 27.0 - 33.0 pg [facility] Mean Corpuscular HGB Conc 33.9 31.0 - 35.0 g/dl [facility] Red Cell Distribution Width 17.6(H) 11.0 - 16.0 % [facility] Platelet Count 219 160 - 400 X10*3/uL [facility] Mean Platelet Volume 10.7 9.4 - 12.3 fL [facility] Neutrophils Percent Auto 79.6(H) 45 - 73 % [facility] Imm Gran Pct Auto 0.4 0.0 - 0.4 % [facility] Lymphocytes Percent Auto 13.9(L) 20 - 40 % [facility] Monocytes Percent Auto 5.8 2 - 11 % [facility] Eosinophils Percent Auto 0.0 0 - 4 % [facility] Basophils Percent Auto 0.3 0 - 2 % [facility] NRBC Pct Auto 0.0 0.0 - 0.2 /100WBC [facility] Neutrophils Absolute Auto 7.1 2.0 - 8.3 x10*3/uL [facility] Imm Gran Abs Auto 0.04(H) 0.00 - 0.03 X10*3/uL [facility] Lymphocytes Absolute Auto 1.3 1.2 - 4.9 X10*3/uL [facility] Monocytes Absolute Auto 0.5 0.1 - 1.2 X10*3/uL [facility] Eosinophils Absolute Auto 0.0 0.0 - 0.4 X10*3/uL [facility] Basophils Absolute Auto 0.0 0.0 - 0.2 X10*3/uL [facility] NRBC Abs Auto 0.000 0.0 - 0.012 X10*3/uL [facility] Blood Venous blood specimen / Unknown 06/27/2025 11:50 AM EDT 06/27/2025 2:21 PM EDT us Yojana Bell MD LAB BLOOD ORDERABLES Final Re sult Performing Organization Address City/[facility]/ZIP Co de Phone Number [facility] [address] [place] [phone] * (ABNORMAL) POCT Urinalysis (06/27/2025 11:50 AM [...] Media Lot # [id number] Lot# Expiration Date 025 Urine 06/27/2025 11:5 0 AM EDT us Yojana Bell MD POINT OF CARE TEST ENTER/EDIT ORDERABLES Final Result * Magnesium (06/27/2025 11:50 AM EDT) Magnesium 2.1 1.6 - 2.6 mg/dL [facility] Blood Venous blood specimen / Unknown 06/27/2025 11:50 AM EDT 06/27/2025 2:21 PM EDT us Yojana Bell MD LAB BLOOD ORDERABLES Final Re sult [facility] [address] [place] [phone] * Lipase (06/27/2025 11:50 AM EDT) Lipase 9 8 - 78 U/L [facility] Blood Venous blood specimen / Unknown 06/27/2025 11:50 AM EDT 06/27/2025 2:21 PM EDT Yojana Bell MD LAB BLOOD ORDERABLES Final Re sult Performing Organization Address [facility] Co de Phone Number [facility] [address] [place] [phone] * (ABNORMAL) Hepatic Function Panel (06/27/2025 11:50 AM EDT) Bilirubin, Total 0.9 0.0 - 1.0 mg/dL [facility] Bilirubin, Direct 0.3 0.0 - 0.5 mg/dL [facility] Aspartate Amino Transferase 30 5 - 31 U/L [facility] Alanine Aminotransferase 11 0 - 31 U/L [facility] Total Protein 8.5(H) 6.5 - 8.0 g/dL [facility] Albumin Level 5.1(H) 3.5 - 5.0 g/dL [facility] Alkaline Phosphatase 112 39 - 117 U/L [facility] Blood Venous blood specimen / Unknown 06/27/2025 11:50 AM EDT 06/27/2025 2:21 PM EDT us Yojana Bell MD LAB BLOOD ORDERABLES Final Re sult Performing Organization Address [facility] Co de Phone Number [facility] [address] [place] [phone] * (ABNORMAL) Basic Metabolic Panel (06/27/2025 11:50 AM EDT) Pathologist [facility] Sodium 135 135 - 145 mmol/L [facility] Potassium 3.4 3.3 - 5.1 mmol/L [facility] Chloride 96 96 - 108 mmol/L [facility] Carbon Dioxide 25 22 - 29 mmol/L [facility] Anion Gap 17 12 - 20 [facility] Urea Nitrogen (BUN) 6(L) 9 - 16 mg/dL [facility] Creatinine, Serum 0.64 0.5 - 1.4 mg/dL [facility] Estimated Glomerular Filt Rate >60 [facility] Comment:Chronic Kidney Disea se: Estimated GFR < 60 mL/min/[id number] Kidney Disease: Estimated GFR < 15 mL/min/1.73m2 Glucose 100 60 - 115 mg/dL [facility] Calcium 9.8 8.4 - 10.2 mg/dL [facility] Blood Venous blood specimen / Unknown 06/27/2025 11:50 AM EDT 06/27/2025 2:21 PM EDT us Yojana Bell MD LAB BLOOD ORDERABLES Final Re sult [facility] [address] [place] [phone] * Hepatitis A,B,C Profile (09/05/2024 11:03 AM EST) Hepatitis A IgM Nonreactive Nonreactive [facility] Comment:IgM antibodies to LAUREN V not detected; does not exclude earlyacute or recovered HAV infection. ~Hepatitis B Surface Antibody NONREACTIVE Nonreactive [facility] Comment:Nonreactive: < 8.00 mIU/mL Hepatitis B Core Antibody Nonreactive Nonreactive [facility] Hepatitis C Antibody Nonreactive Nonreactive [facility] Comment:Antibodies to HCV no t detected; does not exclude early acuteHCV infection. Hepatitis B Surface Ag Negative Negative [facility] Blood Venous blood specimen / Unknown 09/05/2024 11:03 AM EST 09/05/2024 2:10 PM EST us Fany James MD LAB BLOOD ORDERABLES Final Result [facility] [address] [place] [phone] * BI Mammogram Screening Tomosynthesis Bilateral (09/16/2023 10:38 AM EST) Anatomical Region Laterality Modality Breast Bilateral Mammography 09/16/2023 10:3 8 AM EST Narrative 09/22/2023 8:50 AM EST [address] [place] [address] Mammography Report Signed Patient: Radha Koroma MR#: [id number] 28 : 1960 Acct:[id number] Age/Sex: 63 / F ADM Date: 09/16/23 Loc: HO.MAMMO Attending Dr: Fany James MD Ordering Physician: Fany James MD Results: 1 Negative Date of Service: 09/16/23 Follow Up: 1 Year From [facility] ina Mammogram Procedure(s): MM tomosynthesis screening BI Accession Number(s): [id number] cc: Fany James MD EXAMINATION: MM SCREENING [...] in OV> 09/22/23 0847 DD/ 1038 TD/TT: Board Mixer Tender: Procedure Note Donotuseinterpreter, Image - 09/22/2023 [facility] [address] [place] [address] Mammography Report Signed Patient: Jany Koroma#: [id number] 28 : 2Acct:[id number] Age/Sex: 63 / FADM Date: 09/16/23 Loc: MAMMO Attending Dr: Fany James MD Ordering Physician: Fany James MDResults: 1 Negative Date of Service: 09/16/23Follow Up: 1 Year From Orig inal Mammogram Procedure(s): MM tomosynthesis screening BI Accession Number(s): [id number] cc: Fany James MD EXAMINATION: MM SCREENING [...] in OV> 09/22/23 0847 DD/ 1038 TD/TT: Board Mixer Tender: us Fany James MD IMG BI PROCEDURES Final Res ult * (ABNORMAL) Lipid Panel, Standard (08/17/2023 11:46 AM EDT) Triglycerides 98 <150 mg/dL [facility] Comment:Desirable Triglyceri de: less than 150 mg/dLBorderline High Triglyceride 150-199 mg/dLHigh Triglyceride: 200-499 mg/dLVery High Triglyceride: greater than or equal to 5OO mg/dL Cholesterol 246(H) <200 mg/dL [facility] Comment:Desirable Cholestero l: less than 200 mg/dLBorderline High Cholesterol: 200-239 mg/dLHigh Cholesterol: greater than 239 mg/dL LDL Cholesterol Calculated 95 <100 mg/dL [facility] Comment:Desirable LDL: less than 100 mg/dLNear Optimal/Above Optimal LDL: 110- 129 mg/dLBorderline High LDL: 130-159 mg/dLHigh LDL: 160-189 mg/dLVery High LDL: greater than or equal to 190 mg/dL HDL Cholesterol 132 >40 mg/dL [facility] Comment:Desirable HDL: great er than 40 mg/dL Note: This HDL assay may give artificially low results in patients with liver disease. Blood Venous blood specimen / Unknown 08/17/2023 11:46 AM EDT 08/17/2023 2:13 PM EDT Fany James MD LAB BLOOD ORDERABLES Final Result [facility] [address] [place] [phone] * Hm Colonoscopy (04/13/2017) Colonoscopy Normal Normal Narrative Lorena Zurita - 04/13/2017 Recommended 5 year follow up Historical Provider HEALTH MAINTENANCE Final Result from Last 3 Months or Most Recently Relevant to Health Maintenance Insurance [facility] C[facility] [address] [address] MEDICAID STAND ADULT Care Teams Wafer Batter Mixer Relationship Specialty Start Date End Date Fany James MD [address] [place] [address] PCP - General Internal Medicine 07[facility]20 [facility] Residential Case ManagerSolid Tire Tuber Machine Operator 01/22/24
--- OUTSIDE RECORDS SUMMARY | 2025-09-02 16:25 | XMS_ITS | Encounter Summary ---
Author Organization [employer] Address [address] [facility] 7t [place] [address] Care Team Providers Care Truck Farmer Name Role Phone Fany James MD Primary Care Provider Reason for Visit * Reason Onset Date Comments PT-1 08/21/2025 Encounter Details Date Type Department Care Team ([facility] st Contact Info) Description 08/21/2025 Telephone [facility] MEDICINE [address] [place] [address] Fany James MD 505 [place] [address] PT-1 Social History Tobacco Use Types Packs/Day Years [...] encounter Miscellaneous Notes * Telephone Encounter - Owen Varela - 08/21/2025 4:06 PM EDT Patient calling requesting PT1 Home Address verified: Y/N: Yes Provider name or facility name: [facility] Facility Address: [address] [place] [address] Escort needed: Y/N: Yes Do you have a wheelchair: Y/N: No If yes- Manual or electric: N/A Visits: 2 times a month documented in this encounter Plan of Treatment Upcoming Encounters Date Type Department Care Team ([facility] Contact Info) Description 09/15/2025 1:30 PM EST Medication Management [facility] MED & PEDS [address] [place] [address] Raegan Bhardwaj, NadegeD [address] [place] [address] 09/30/2025 1:45 PM EST Office Visit [facility] MED & PEDS [address] [place] [address] Fany James MD 505 [place] [address] documented as of this encounter Visit Diagnoses Not on filedocumented in this encounter Additional Health Concerns Assessment Noted Time PHQ-9 Depression Total Score: 4 02/07/20 25 11:17 AM EDT documented as of this encounter Care Teams Truck Farmer Relationship Specialty Start Date End Date Fany James MD 505 [facility] [address] PCP - General Internal Medicine 07/28/20 Carmen Madsen Marine Electronics RepairerCemetery Warden 01/22/24 documented as of this encounter
--- OUTSIDE RECORDS SUMMARY | 2025-09-02 16:25 | XMS_ITS | Encounter Summary ---
Author Organization [employer] Address 75 [facility] 7t [place] [address] Care Team Providers Care Emergency Services Professional Name Role Phone Fany James MD Primary Care Provider Lianna Willett Unavailable [phone] Encounter Details Date Type Department Care Team (Late Contact Info) Description 06/05/2023 Orders Only [facility] CHC MED & PEDS [address] [place] [address] Fany James MD 505 [place] [address] Closed nondisplaced fracture of left clavicle with [...] Encounters Date Type Department Care Team (Late Contact Info) Description 09/15/2025 1:30 PM EST Medication Management [facility] MED & PEDS [address] [place] [address] Raegan Bhardwaj, NadegeD 230 [place] [address] 09/30/2025 1:45 PM EST Office Visit [facility] MED & PEDS [address] [place] [address] Fany James MD 505 [place] [address] documented as of this encounter Visit Diagnoses Diagnosis Closed nondisplaced fracture of left clavicle with routine healing, unspecified part of clavicle, subsequent encounter- Primary documented in this encounter Additional Health Concerns Assessment Noted Time PHQ-9 Depression Total Score: 8 12/08/19 23 9:22 AM EST documented as of this encounter Care Teams Emergency Services Professional Relationship Specialty Start Date End Date Fany James MD [address] [place] [address] PCP - General Internal Medicine 07/28/20 Lianna Willett Registered Nurse 06/30/25 06/30/25 Carmen Madsen Bushing Press OperatorWorkers Compensation Analyst 01/22/24 [employer] 01/25/25 04/06/25 documented as of this encounter
--- OUTSIDE RECORDS SUMMARY | 2025-09-02 16:25 | XMS_ITS | Patient Health Record ---
Author Organization [facility] Address [address] [place] [address] Care Team Providers Care Contract Administration Manager Name Role Phone Willy Monahan [phone] Reason For Referral No Information Plan Of Treatment No Information
--- OUTSIDE RECORDS SUMMARY | 2025-09-02 16:25 | XMS_ITS | Encounter Summary ---
Author Organization [employer] Address 75 [facility] 7t [place] [address] Care Team Providers Care Concierge Receptionist Name Role Phone Fany James MD Primary Care Provider Lianna Willett Unavailable [phone] Encounter Details Date Type Department Care Team ([facility] st Contact Info) Description 12/27/2023 Orders Only [facility] CHC MED & PEDS [address] [place], [place] [phone] Fany James MD 505 [place] [address] Acute pain of left knee (Primary Dx) [...] 1:30 PM EST Medication Management [facility] MED & PEDS [address] [place] [address] Raegan Bhardwaj, PharmD [address] [place] [address] 09/30/2025 1:45 PM EST Office Visit [facility] MED & PEDS [address] [place] [address] Fany James MD [address] [place] [address] documented as of this encounter Visit Diagnoses Diagnosis Acute pain of left knee- Primary documented in this encounter Additional Health Concerns Assessment Noted Time PHQ-9 Depression Total Score: 14 023 11:56 AM EDT documented as of this encounter Care Teams Concierge Receptionist Relationship Specialty Start Date End Date Fany James MD [address] [place] [address] PCP - General Internal Medicine 07/28/20 Lianna Willett Registered Nurse 06/30/25 06/30/25 Carmen Madsen Fruit And Vegetable Factory WorkerSupervisor Powdered Metal 01/22/24 [employer] 01/25/25 04/06/25 documented as of this encounter
--- OUTSIDE RECORDS SUMMARY | 2025-09-02 16:25 | XMS_ITS | Encounter Summary ---
Author Organization [employer] Address [address] [facility] 7t [place] [address] Care Team Providers Care Orthopedic Coder Name Role Phone Fany James MD Primary Care Provider Lianna Willett Unavailable Reason for Visit * Reason Onset Date Comments Med Refill 03/19/2025 Encounter Details Date Type Department Care Team ([facility] st Contact Info) Description 03/19/2025 Telephone [facility] MEDICINE [address] [place] [address] Fany James MD [address] [place] [address] Med Refill Social History Tobacco Use Types [...] - 03/28/2025 10:36 AM EDT [facility] medication refills to be sent [...] 14 MG/24HR patch To be sent to: [facility] [address] documented in this encounter Plan of Treatment Upcoming Encounters Date Type Department Care Team (Late st Contact Info) Description 09/15/2025 1:30 PM EST Medication Management [facility] MED & PEDS 505 [place] [address] Raegan Bhardwaj, PharmD [address] [place] [address] 09/30/2025 1:45 PM EST Office Visit [facility] MED & PEDS 505 [place] [address] Fany Jmaes MD 505 [place] [address] documented as of this encounter Visit Diagnoses Not on filedocumented in this encounter Additional Health Concerns Assessment Noted Time PHQ-9 Depression Total Score: 4 02/07/20 11:17 AM EDT documented as of this encounter Care Teams Orthopedic Coder Relationship Specialty Start Date End Date Fany James MD [address] [place] [address] PCP - General Internal Medicine 07/28/20 Lianna Willett Registered Nurse 06/30/25 06/30/25 Carmen Madsen CargomanSupervisor Motorcycle Repair Shop 01/22/24 [employer] 01/25/25 04/06/25 documented as of this encounter
--- OUTSIDE RECORDS SUMMARY | 2025-09-02 16:25 | XMS_ITS | Encounter Summary ---
Author Organization [employer] Address [address] [facility] 7t [place] [address] Care Team Providers Care Customer Strategy Manager Name Role Phone Fany James MD Primary Care Provider Lainna Willett Unavailable [phone] Reason for Visit * Reason Onset Date Comments Med Refill 03/28/2024 Encounter Details Date Type Department Care Team ([facility] st Contact Info) Description 03/28/2024 Telephone [facility] MEDICINE [address] [place] [address] Fany James MD [address] [place] [address] Med Refill Social History Tobacco Use Types [...] immediate release tablet To be sent to: [facility]/pharmacy #[id number] [place], [place] - [address] [place] [address] documented in this encounter Plan of Treatment Upcoming Encounters Date Type Department Care Team (Late st Contact Info) Description 09/15/2025 1:30 PM EST Medication Management [facility] MED & PEDS [address] [place] [address] Raegan Bhardwaj, PharmD 230 [place] [address] 09/30/2025 1:45 PM EST Office Visit [facility] MED & PEDS 505 [place] [address] Fany James MD [address] [place], [place] documented as of this encounter Visit Diagnoses Not on filedocumented in this encounter Additional Health Concerns Assessment Noted Time PHQ-9 Depression Total Score: 14 023 11:56 AM EDT documented as of this encounter Care Teams Customer Strategy Manager Relationship Specialty Start Date End Date Fany James MD [address] [place] [address] PCP - General Internal Medicine 07/28/20 Lianna Willett Registered Nurse 06/30/25 06/30/25 Carmen Madsen Regional Sales AssociateRadio Frequency Design Engineer 01/22/24 [employer] 01/25/25 04/06/25 documented as of this encounter
--- OUTSIDE RECORDS SUMMARY | 2025-09-02 16:25 | XMS_ITS | Encounter Summary ---
Author Organization [employer] Address [address] [facility] 7t [place] [address] Care Team Providers Care Optical Lathe Operator Name Role Phone Fany James MD Primary Care Provider Lianna Willett Unavailable [phone] Reason for Visit * Reason Comments Med Refill Encounter Details Date Type Department Care Team ([facility] Contact Info) Description 07/25/2024 Refill [facility] CHC MED & PEDS [address] [place] [address] Fany James MD 505 [place] [address] Hypertension, unspecified type Social History Tobacco Use [...] Description 09/15/2025 1:30 PM EST Medication Management [facility] MED & PEDS [address] [place] [address] Raegan Bhardwaj, PharmD [address] [place], [place] [phone] 09/30/2025 1:45 PM EST Office Visit [facility] MED & PEDS [address] [place] [address] Fany James MD 505 [place] [address] documented as of this encounter Visit Diagnoses Diagnosis Hypertension, unspecified type documented in this encounter Additional Health Concerns Assessment Noted Time PHQ-9 Depression Total Score: 14 023 11:56 AM EDT documented as of this encounter Care Teams Optical Lathe Operator Relationship Specialty Start Date End Date Fany James MD [address] [place] [address] PCP - General Internal Medicine 07/28/20 Lianna Willett Registered Nurse 06/30/25 06/30/25 Carmen Madsen Manager Regional SalesLegal Billing Analyst 01/22/24 [employer] 01/25/25 04/06/25 documented as of this encounter
--- OUTSIDE RECORDS SUMMARY | 2025-09-02 16:25 | XMS_ITS | Encounter Summary ---
Author Organization [employer] Address 75 [facility] 7 [place] [address] Care Team Providers Care Diet Consultant Name Role Phone Fany James MD Primary Care Provider [phone] Reason for Visit * Reason Onset Date Comments Appointment 09/02/2025 Encounter Details Date Type Department Care Team ([facility] Contact Info) Description 09/02/2025 Telephone [facility] CHC MED & PEDS [address] [place] [address] Fany James MD [address] [place] [address] Appointment Social History Tobacco Use Types Packs/Day Years [...] encounter Miscellaneous Notes * Telephone Encounter - Liss Love - 09/02/2025 2:59 PM EST Outgoing call video games storywriter attempted to dyan active request appoitnment: Follow up in about 4 weeks (around 09/30/2025) for BP check. If pt returns call please schedule on next avail. documented in this encounter Plan of Treatment Upcoming Encounters Date Type Department Care Team (Late st Contact Info) Description 09/15/2025 1:30 PM EST Medication Management [facility] MED & PEDS [address] [place] [address] Raegan Bhardwaj, PharmD 230 [place] [address] 09/30/2025 1:45 PM EST Office Visit [facility] MED & PEDS 505 [place] [address] Fany James MD [address] [place] [address] documented as of this encounter Visit Diagnoses Not on filedocumented in this encounter Additional Health Concerns Assessment Noted Time PHQ-9 Depression Total Score: 4 02/07/20 25 11:17 AM EDT documented as of this encounter Care Teams Diet Consultant Relationship Specialty Start Date End Date Fany James MD [address] [place] [address] PCP - General Internal Medicine 07/28/20 Carmen Madsen Hydroelectric Station OperatorHairspring Cutter 01/22/24 documented as of this encounter
--- OUTSIDE RECORDS SUMMARY | 2025-09-02 16:25 | XMS_ITS | Encounter Summary ---
Author Organization [employer] Address 75 [facility] 7t [place] [address] Care Team Providers Care Batter Scaler Name Role Phone Fany James MD Primary Care Provider Lianna Willett Unavailable [phone] Encounter Details Date Type Department Care Team (Late st Contact Info) Description 02/28/2025 Orders Only [facility] [address] [place] [address] Provider, MD Marcellus Social History Tobacco Use [...] 09/15/2025 1:30 PM EST Medication Management [facility] MED & PEDS [address] [place], [place] [phone] Raegan Bhardwaj, PharmD 230 [place] [address] 09/30/2025 1:45 PM EST Office Visit [facility] MED & PEDS [address] [place], [place] [phone] Fany James MD [address] [place] [address] documented as of this encounter Procedures Procedure [...] documented as of this encounter Care Teams Batter Scaler Relationship Specialty Start Date End Date Fany James MD [address] [place] [address] PCP - General Internal Medicine 07/28/20 Lianna Willett Registered Nurse 06/30/25 06/30/25 Carmen Madsen Fish And Wildlife BiologistEtymology Teacher 01/22/24 [employer] 01/25/25 04/06/25 documented as of this encounter
--- OUTSIDE RECORDS SUMMARY | 2025-09-02 16:25 | XMS_ITS | Encounter Summary ---
Author Organization [employer] Address 75 [facility] 7t [place] [address] Care Team Providers Care Senior Project Accountant Name Role Phone Fany James MD Primary Care Provider Lianna Willett Unavailable [phone] Encounter Details Date Type Department Care Team ([facility] Contact Info) Description 04/18/2025 Orders Only [facility] CHC MED & PEDS [address] [place], [place] [phone] Fany James MD [address] [place] [address] Seizure-like activity (CMS/HCC) (Primary Dx) Social History [...] Description 09/15/2025 1:30 PM EST Medication Management [facility] MED & PEDS [address] [place] [address] Raegan Bhardwaj, PharmD 230 [place] [address] 09/30/2025 1:45 PM EST Office Visit [facility] MED & PEDS [address] [place] [address] Fany James MD 505 [place] [address] documented as of this encounter Visit Diagnoses Diagnosis Seizure-like activity (CMS/HCC) (HCC)- Primary documented in this encounter Additional Health Concerns Assessment Noted Time PHQ-9 Depression Total Score: 4 02/07/20 25 11:17 AM EDT documented as of this encounter Care Teams Senior Project Accountant Relationship Specialty Start Date End Date Fany James MD [address] [place] [address] PCP - General Internal Medicine 07/28/20 Lianna Willett Registered Nurse 06/30/25 06/30/25 Carmen Madsen Ammunition Components InspectorTissue Technologist 01/22/24 documented as of this encounter
--- OUTSIDE RECORDS SUMMARY | 2025-09-02 16:25 | XMS_ITS | Encounter Summary ---
Author Organization [employer] Address 75 [facility] 7t [place] [address] Care Team Providers Care Clinical Cytopathologist Name Role Phone Fany James MD Primary Care Provider Lianna Willett Unavailable [phone] Encounter Details Date Type Department Care Team (Late st Contact Info) Description 07/03/2024 Orders Only [facility] [address] [place] [address] Provider, MD Marcellus Social History Tobacco Use [...] [facility] 505 [place] [address] Raegan Bhardwaj PharmD 230 [place] [address] 09/30/2025 1:45 PM EST Office Visit [facility] MED & PEDS [address] [place] [address] Fany James MD 505 [place] [address] documented as of this encounter Procedures Procedure [...] documented as of this encounter Care Teams Clinical Cytopathologist Relationship Specialty Start Date End Date Fany James MD [address] [place] [address] PCP - General Internal Medicine 07/28/20 Lianna Willett Registered Nurse 06/30/25 06/30/25 Carmen Madsen Rubber Calender HelperCoal Or Ore Controller 01/22/24 [employer] 01/25/25 04/06/25 documented as of this encounter
--- OUTSIDE RECORDS SUMMARY | 2025-09-02 16:25 | XMS_ITS | Encounter Summary ---
Author Organization [employer] Address 75 [facility] 7t [place] [address] Care Team Providers Care Equipment Maint Tech Name Role Phone aFny James MD Primary Care Provider Lianna Willett Unavailable [phone] Reason for Visit * Reason Onset Date Comments Medication Question 03/27/2024 Encounter Details Date Type Department Care Team ([facility] Contact Info) Description 03/27/2024 Telephone [facility] CHC MED & PEDS [address] [place], [place] [phone] Fany James MD 505 [place] [address] Medication Question Social History Tobacco Use Types [...] immediate release tablet To be sent to: [facility]/pharmacy #[id number] - [place], [place] - [address] [facility] documented in this encounter Plan of Treatment Upcoming Encounters Date Type Department Care Team (Late st Contact Info) Description 09/15/2025 1:30 PM EST Medication Management [facility] MED & PEDS [address] [place] [address] Raegan Bhardwaj, PharmD 230 [place] [address] 09/30/2025 1:45 PM EST Office Visit [facility] CHC MED & PEDS 505 [place] [address] Fany James MD 505 [place] [address] documented as of this encounter Visit Diagnoses Diagnosis Closed nondisplaced fracture of left clavicle with routine healing, unspecified part of clavicle, subsequent encounter- Primary documented in this encounter Additional Health Concerns Assessment Noted Time PHQ-9 Depression Total Score: 14 023 11:56 AM EDT documented as of this encounter Care Teams Equipment Maint Tech Relationship Specialty Start Date End Date Fany James MD 505 [place] [address] PCP - General Internal Medicine 07/28/20 Lianna Willett Registered Nurse 06/30/25 06/30/25 Carmen Madsen Business Technology ArchitectFixed Wing Aircraft Flight Engineer 01/22/24 [employer] 01/25/25 04/06/25 documented as of this encounter
--- OUTSIDE RECORDS SUMMARY | 2025-09-02 16:25 | XMS_ITS | Encounter Summary ---
Author Organization [employer] Address 75 [facility] 7t [place] [address] Care Team Providers Care Cotton Farmer Name Role Phone Fany James MD Primary Care Provider Lianna Willett Unavailable Reason for Visit * Reason Onset Date Comments Med Refill 04/16/2024 Encounter Details Date Type Department Care Team (Late st Contact Info) Description 04/16/2024 Refill [facility] MEDICINE 230 [place] [address] Fany James MD 505 [place] [address] Closed nondisplaced fracture of left clavicle with [...] the past 12 months, has t he [employer], gas, oil or water company threatened to [...] immediate release tablet To be sent to: [facility]/pharmacy #[id number] [place] [address] documented in this encounter Plan of Treatment Upcoming Encounters Date Type Department Care Team (Late st Contact Info) Description 09/15/2025 1:30 PM EST Medication Management [facility] MED & PEDS [address] [place] [address] Raegan Bhardwaj, PharmD 230 [place] [address] 09/30/2025 1:45 PM EST Office Visit [facility] MED & PEDS 505 [place] [address] Fany James MD 505 [place] [address] documented as of this encounter Visit Diagnoses Diagnosis Closed nondisplaced fracture of left clavicle with routine healing, unspecified part of clavicle, subsequent encounter- Primary documented in this encounter Additional Health Concerns Assessment Noted Time PHQ-9 Depression Total Score: 14 023 11:56 AM EDT documented as of this encounter Care Teams Cotton Farmer Relationship Specialty Start Date End Date Fany James MD [address] [place] [address] PCP - General Internal Medicine 07/28/20 Lianna Willett Registered Nurse 06/30/25 06/30/25 Carmen Madsen Manager BilingualFoundry Tender 01/22/24 [employer] 01/25/25 04/06/25 documented as of this encounter
--- OUTSIDE RECORDS SUMMARY | 2025-09-02 16:25 | XMS_ITS | Encounter Summary ---
Author Organization [employer] Address 75 [facility] 7t [place] [address] Care Team Providers Care Design Engineer Marine Equipment Name Role Phone Fany James MD Primary Care Provider [phone] Encounter Details Date Type Department Care Team (Latest Contact Info) Description 09/02/2025 Travel Social History Tobacco Use Types Packs/Day [...] Description 09/15/2025 1:30 PM EST Medication Management [facility] MED & PEDS [address] [place] [address] Raegan Bhardwaj, PharmD 230 [place] [address] 09/30/2025 1:45 PM EST Office Visit [facility] MED & PEDS 505 [place] [address] Fany James MD 505 [place] [address] documented as of this encounter Visit Diagnoses Not on filedocumented in this encounter Additional Health Concerns Assessment Noted Time PHQ-9 Depression Total Score: 4 02/07/20 25 11:17 AM EDT documented as of this encounter Care Teams Design Engineer Marine Equipment Relationship Specialty Start Date End Date Fany James MD [address] [place] [address] PCP - General Internal Medicine 07/28/20 Carmen Madsen Sub Assembly Team WorkerHaulpak Driver 01/22/24 documented as of this encounter
--- OUTSIDE RECORDS SUMMARY | 2025-09-02 16:25 | XMS_ITS | Clinical Summary ---
Author Organization [facility] Address [address] [place] [address] Phone Care Team Providers Care Registered Radiographer Name Role Phone Fany James MD Primary Care Provider [phone] Allergies Active Allergy Reactions Criticality Noted Date [...] (NSTEMI) 02/27/2025 Coronary artery disease invo lving ewiiaapaayp coronary artery of ewiiaapaayp heart without angina pectoris 02/27/2025 Assessment & [...] Resolved. COPD (chronic obstructive pu lmonary disease) ([facility], [facility] V28) 05/03/2024 NSTEMI (non-ST elevated myoc ardial infarction) ([facility], [facility] V28) 05/03/2024 Depression 12/08/2022 Migraine 10/21/2010 Encounters Date Type Department Care Team Description 07/08/2025 Telephone [facility] [address] [place] [address] Caden Anguiano MD from Last 3 Months Surgical History Surgery Date Site/Laterality Comments CARDIAC CATHETERIZATION DONE ON 01/22/2025 AT [facility] INDICATIONS: Abnormal nuclear perfusion study. Medical History Medical History Date Comments Anemia Hypertension Seizures ([facility] V[facility], [facility] V28) Urinary incontinence Ulnar fracture COPD with emphysema ([facility] V[facility], [facility] V28) Compression fracture of spine ([facility] V[facility], [facility] V28) Chronic back pain Social History Tobacco Use Types Packs/Day Years Used Date Smoking Tobacco: Former Cigarettes Smokeless Tobacco: Never Tobacco Cessation:Counseling Given: Not Answered Alcohol Use Standard Drinks/Week Comments Not Currently 0 (1 standard drink = 0.6 oz pur e alcohol) Interpersonal Safety Answer Date Record ed Physical Abuse Unrecognized value 01/16/2025 Verbal Abuse Unrecognized value 01/16/2025 Comments Unknown Sex and Gender Information [...] 02/27/2025 8:15 AM EDT Plan of Treatment Health Maintenance Due Date Last Done Comments Breast Cancer Screening 1962 Colorectal Cancer Screening: Colonoscopy 1962 Hepatitis A Vaccines (1 of 2 - Risk 2-dose series) 1981 Cervical Cancer Screening: Pap Smear 1983 RSV Immunization Adult Patients (1 - Risk 50-74 years 1-dose series) 2012 Zoster Vaccines (1 of 2) 2012 HIV Screening 09/25/2022 Hepatitis C Screening 09/25/2022 [...] mmol/L LAB CHEMISTRY METHOD 01/20/2025 9:28 AM [facility] Potassium 4.1 3.5 - 5.5 mmol/L LAB CHEMISTRY METHOD 01/20/2025 9:28 AM [facility] Chloride 106 96 - 110 mmol/L LAB CHEMISTRY METHOD 01/20/2025 9:28 AM [facility] CO2 28 21 - 32 mmol/L LAB CHEMISTRY METHOD 01/20/2025 9:28 AM [facility] Anion Gap 4 3 - 11 LAB CHEMISTRY METHOD 01/20/2025 9:28 AM [facility] Glucose 89 70 - 100 mg/dL LAB CHEMISTRY METHOD 01/20/2025 9:28 AM [facility] BUN 10 5 - 25 mg/dL LAB CHEMISTRY METHOD 01/20/2025 9:28 AM [facility] Creatinine 0.61 0.50 - 1.10 mg/dL LAB CHEMISTRY METHOD 01/20/2025 9:28 AM [facility] eGFR 101 >=60 mL/min/1. 73m2 LAB CHEMISTRY METHOD 01/20/2025 9:28 AM [facility] Comment:Calculation based on the Chronic Kidney Disease Epidemiology Collaboration (CKD-EPI) equation refit without adjustment for race. BUN/Creatinine Ratio 16.4 LAB CHEMISTRY METHOD 01/20/2025 9:28 AM EDT [facility] Calcium 9.8 8.5 - 10.5 mg/dL LAB CHEMISTRY METHOD 01/20/2025 9:28 AM EDT [facility] Blood Venous blood specimen / Unknown Venipuncture / Unknown 01/20/2025 8:58 AM EDT 01/20/2025 9:02 AM EDT Renetta SIMS LAB BLOOD ORDERABLES Final Result [facility] [address] [place] [address], [place] [phone] * (ABNORMAL) Lipid panel with reflex to direct LDL (01/18/2025 6:18 AM EDT) Cholesterol 209(H) 0 - 200 mg/dL LAB CHEMISTRY METHOD 01/18/2025 8:08 AM [facility] Triglycerides 130 0 - 150 mg/dL LAB CHEMISTRY METHOD 01/18/2025 8:08 AM [facility] HDL 94 >=40 mg/dL LAB CHEMISTRY METHOD 01/18/2025 8:08 AM [facility] LDL Calculated 89 0 - 100 mg/dL LAB CHEMISTRY METHOD 01/18/2025 8:08 AM [facility] VLDL Cholesterol Suraj 26 mg/dL LAB CHEMISTRY METHOD 01/18/2025 8:08 AM [facility] Non HDL Chol. (LDL+VLDL) 115 <145 mg/dL LAB CHEMISTRY METHOD 01/18/2025 8:08 AM [facility] Chol/HDL Ratio 2.2 0.0 - 4.4 LAB CHEMISTRY METHOD 01/18/2025 8:08 AM [facility] Blood Venous blood specimen / Unknown Venipuncture / Unknown 01/18/2025 6:18 AM EDT 01/18/2025 7:10 AM EDT us Peter Coburn MD LAB BLOOD ORDERABLES Final Re sult [facility] [address] [place] [address], [place] [phone] from Last 3 Months or Most Recently Relevant to Health Maintenance Insurance MEDICAID - [place] Advance Directives Documents on File Type Date Recorded 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 Care Teams Registered Radiographer Relationship Specialty Start Date End Date Fany James MD [address] [place] [address] PCP - General Internal Medicine 09/10/24
--- OUTSIDE RECORDS SUMMARY | 2025-09-02 16:25 | XMS_ITS | Encounter Summary ---
Author Organization [employer] Address [address] [facility] 7t [place] [address] Care Team Providers Care Granite Installer Name Role Phone Fany James MD Primary Care Provider Lianan Willett Unavailable [phone] Encounter Details Date Type Department Care Team ([facility] Contact Info) Description 06/19/2024 Orders Only [facility] MED & PEDS [address] [place], [place] [phone] Fany James MD [address] [place] [address] Left temporal headache (Primary Dx) Social History [...] [facility] [address] [place] [address] Raegan Bhardwaj, PharmD [address] [place] [address] 09/30/2025 1:45 PM EST Office Visit [facility] PEDS [address] [place] [address] Fany James MD [address] [place] [address] documented as of this encounter Visit Diagnoses Diagnosis Left temporal headache- Primary documented in this encounter Additional Health Concerns Assessment Noted Time PHQ-9 Depression Total Score: 14 023 11:56 AM EDT documented as of this encounter Care Teams Granite Installer Relationship Specialty Start Date End Date Fany James MD [address] [place] [address] PCP - General Internal Medicine 07/28/20 Lianna Willett Registered Nurse 06/30/25 06/30/25 Carmen Madsen Provider ScribeProofer 01/22/24 [employer] 01/25/25 04/06/25 documented as of this encounter
--- OUTSIDE RECORDS SUMMARY | 2025-09-02 16:25 | XMS_ITS | Encounter Summary ---
Author Organization [employer] Address [address] [facility] 7t [place] [address] Care Team Providers Care Manager Supply Name Role Phone Fany James MD Primary Care Provider Lianna Willett Unavailable [phone] Encounter Details Date Type Department Care Team ([facility] Contact Info) Description 04/16/2024 Orders Only [facility] MED & PEDS [address] [place] [address] Fany James MD [address] [place] [address] Social History Tobacco Use Types Packs/Day Years [...] [facility] MED & PEDS [address] [place] [address] Raegan Bhardwaj, PharmD [address] [place] [address] 09/30/2025 1:45 PM EST Office Visit [facility] PEDS [address] [place] [address] Fany James MD [address] [place] [address] documented as of this encounter Visit Diagnoses Not on filedocumented in this encounter Additional Health Concerns Assessment Noted Time PHQ-9 Depression Total Score: 14 023 11:56 AM EDT documented as of this encounter Care Teams Manager Supply Relationship Specialty Start Date End Date Fany James MD [address] [place] [address] PCP - General Internal Medicine 07/28/20 Lianna Willett Registered Nurse 06/30/25 06/30/25 Carmen Madsen Poultry InspectorChief Engineer Research 01/22/24 [employer] 01/25/25 04/06/25 documented as of this encounter
--- OUTSIDE RECORDS SUMMARY | 2025-09-02 16:25 | XMS_ITS | Encounter Summary ---
Author Organization [employer] Address [address] [place] [address] 7 [place] [address] Care Team Providers Care Activities Volunteer Name Role Phone Fany James MD Primary Care Provider [phone] TamieLianna finney Unavailable [phone] Reason for Referral * Consultation (Routine) - Authorized Specialty Diagnoses / Procedures Referred By Contac t Referred To Contact Pharmacy Diagnoses Chronic migraine without aura without status migrainosus, not intractable Persistent depressive disorder Chronic heart failure with preserved ejection fraction (HFpEF, >= 50%) ([facility]) Fany James MD [address] [place] [address] Phone: tel: fax: Referral ID Status Reason Start Date Expiration Date Visits Requested Visits Authorized [id number] Authorized Continuity of Care 06/06/2025 06/06/2026 6 6 Encounter Details Date Type Department Care Team (Late st Contact Info) Description 06/06/2025 Orders Only [facility] MED & PEDS [address] [place] [address] Fany James MD [address] [place] [address] Chronic migraine without aura without status migrainosus, [...] Upcoming Encounters Date Type Department Care Team ([facility] st Contact Info) Description 09/15/2025 1:30 PM EST Medication Management [facility] MED & PEDS [address] [place] [address] Raegan Bhardwaj, PharmD [address] [place] [address] 09/30/2025 1:45 PM EST Office Visit [facility] MED & PEDS [address] [place] [address] Fany James MD [address] [place] [address] Scheduled Referrals Name Type Priority Associated Diagnoses [...] with preserved ejection fraction (HFpEF, >= 50%) ([facility]) documented in this encounter Additional Health Concerns Assessment Noted Time PHQ-9 Depression Total Score: 4 02/07/20 25 11:17 AM EDT documented as of this encounter Care Teams Activities Volunteer Relationship Specialty Start Date End Date Fany James MD [address] [place] [address] PCP - General Internal Medicine 07/28/20 Lianna Willett Registered Nurse 06/30/25 06/30/25 Carmen Madsen LinemarkerFitness Coordinator 01/22/24 documented as of this encounter
--- OUTSIDE RECORDS SUMMARY | 2025-09-02 16:25 | XMS_ITS | Encounter Summary ---
Author Organization [employer] Address [address] [facility] 7t [place] [address] Care Team Providers Care Public Transit Trolley Driver Name Role Phone Fany James MD Primary Care Provider Lianna Willett Unavailable [phone] Encounter Details Date Type Department Care Team ([facility] Contact Info) Description 03/22/2024 Orders Only [facility] MED & PEDS [address] [place], [place] [phone] Fany James MD [address] [place] [address] Microcytic anemia (Primary Dx) Social History Tobacco [...] 1:30 PM EST Medication Management [facility] MED & PEDS [address] [place] [address] Raegan Bhardwaj PharmD [address] [place] [address] 09/30/2025 1:45 PM EST Office Visit [facility] MED & PEDS [address] [place] [address] Fany James MD [address] [place] [address] Scheduled Orders Name Type Priority Associated Diagnoses [...] documented as of this encounter Care Teams Public Transit Trolley Driver Relationship Specialty Start Date End Date Fany James MD [address] [place] [address] PCP - General Internal Medicine 07/28/20 Lianna Willett Registered Nurse 06/30/25 06/30/25 Carmen Madsen Crisis Intervention SpecialistWeir Fisher 01/22/24 [employer] 01/25/25 04/06/25 documented as of this encounter
--- OUTSIDE RECORDS SUMMARY | 2025-09-02 16:25 | XMS_ITS | Encounter Summary ---
Author Organization [employer] Address 75 [facility] 7t [place] [address] Care Team Providers Care Residential Appliance Repair Technician Name Role Phone Fany James MD Primary Care Provider [phone] Lianna Willett Unavailable [phone] Reason for Visit * Reason Comments Med Refill Encounter Details Date Type Department Care Team ([facility] Contact Info) Description 06/08/2024 Refill [facility] MED & PEDS [address] [place] [address] Kathleen Carrington, PREPARATORY TECHNICIAN [address] [place] [address] Arthralgia of lower leg, unspecified laterality Social [...] 1:30 PM EST Medication Management [facility] MED & PEDS [address] [place] [address] Raegan Bhardwaj, PharmD [address] [place], [place] [phone] 09/30/2025 1:45 PM EST Office Visit [facility] MED & PEDS [address] [place] [address] Fany James MD [address] [place] [address] documented as of this encounter Visit Diagnoses Diagnosis Arthralgia of lower leg, unspecified laterality documented in this encounter Additional Health Concerns Assessment Noted Time PHQ-9 Depression Total Score: 14 023 11:56 AM EDT documented as of this encounter Care Teams Residential Appliance Repair Technician Relationship Specialty Start Date End Date Fany James MD [address] [place] [address] PCP - General Internal Medicine 07/28/20 Lianna Willett Registered Nurse 06/30/25 06/30/25 Carmen Madsen Baton TwirlerInfrastructure Developer 01/22/24 [employer] 01/25/25 04/06/25 documented as of this encounter
--- OUTSIDE RECORDS SUMMARY | 2025-09-02 16:25 | XMS_ITS | Encounter Summary ---
Author Organization [employer] Address [address] [facility] 7t [place] [address] Care Team Providers Care Warehouse Associate Driver Name Role Phone Fany James MD Primary Care Provider [phone] Lianna Willett Unavailable [phone] Encounter Details Date Type Department Care Team ([facility] Contact Info) Description 07/04/2024 Orders Only [facility] MED & PEDS [address] [place], [place] [phone] Fany James MD [address] [place] [address] Left temporal headache (Primary Dx) Social History [...] 09/15/2025 1:30 PM EST Medication Management [facility] MED & PEDS [address] [place] [address] Raegan Bhardwaj, PharmD [address] [place] [address] 09/30/2025 1:45 PM EST Office Visit [facility] MED & PEDS [address] [place] [address] Fany James MD [address] [place] [address] documented as of this encounter Visit Diagnoses Diagnosis Left temporal headache- Primary documented in this encounter Additional Health Concerns Assessment Noted Time PHQ-9 Depression Total Score: 14 023 11:56 AM EDT documented as of this encounter Care Teams Warehouse Associate Driver Relationship Specialty Start Date End Date Fany James MD [address] [place] [address] PCP - General Internal Medicine 07/28/20 Lianna Willett Registered Nurse 06/30/25 06/30/25 Carmen Madsen Nutrition Services AssistantSlate Cutter 01/22/24 [employer] 01/25/25 04/06/25 documented as of this encounter
--- OUTSIDE RECORDS SUMMARY | 2025-09-02 16:26 | XMS_ITS | Encounter Summary ---
Author Organization [employer] Address [address] [facility] 7 [place] [address] Care Team Providers Care Safety Deposit Clerk Name Role Phone Fany James MD Primary Care Provider [phone] TamieLianna finney Unavailable [phone] Reason for Referral * Imaging (Routine) - Pending Review Specialty Diagnoses / Procedures Referred By Contac t Referred To Contact Radiology Diagnoses Transaminitis Procedures US Abdomen Complete Fany James MD [address] [place] [address] Phone: tel: fax: [address] Phone: tel: fax: Referral ID Status Reason Start Date Expiration Date V isits Requested Visits Authorized [id number] Pending Review 09/04/2024 09/04/2025 1 1 Encounter Details Date Type Department Care Team (Late st Contact Info) Description 09/04/2024 Orders Only [facility] CHC MED & PEDS [address] [place] [address] Fany James MD [address] [place] [address] Transaminitis (Primary Dx) Social History Tobacco Use [...] your housing situation today? I have angela sliva 01/29/[address] you li [...] 1:30 PM EST Medication Management [facility] MED & PEDS [address] [place] [address] Raegan Bhardwaj, PharmD [address] [place] [address] 09/30/2025 1:45 PM EST Office Visit [facility] MED & PEDS [address] [place] [address] Fany James MD [address] [place] [address] Scheduled Orders Name Type Priority Associated Diagnoses Orde r Schedule US Abdomen Complete Imaging Routine Transaminitis Expected: 09/04/2024, Expires: 09/04/2025 documented as of this encounter Procedures Procedure Name Priority Date/Time Associated Diagnosis Comments HEPATITIS PANEL, GENERAL Routine 09/05/2024 11:03 AM EST Transaminitis documented in this encounter Results * Hepatitis A,B,C Profile (09/05/2024 11:03 AM EST) Hepatitis A IgM Nonreactive Nonreactive [facility] Comment:IgM antibodies to LAUREN V not detected; does not exclude earlyacute or recovered HAV infection. ~Hepatitis B Surface Antibody NONREACTIVE Nonreactive [facility] Comment:Nonreactive: < 8.00 mIU/mL Hepatitis B Core Antibody Nonreactive Nonreactive [facility] Hepatitis C Antibody Nonreactive Nonreactive [facility] Comment:Antibodies to HCV no t detected; does not exclude early acuteHCV infection. Hepatitis B Surface Ag Negative Negative [facility] Blood Venous blood specimen / Unknown 09/05/2024 11:03 AM EST 09/05/2024 2:10 PM EST Fany James MD LAB BLOOD ORDERABLES Final Result [facility] [address] [place] [phone] documented in this encounter Visit Diagnoses Diagnosis Transaminitis- Primary Nonspecific elevation of levels of transaminase or lactic acid dehydrogenase (LDH) documented in this encounter Additional Health Concerns Assessment Noted Time PHQ-9 Depression Total Score: 14 023 11:56 AM EDT documented as of this encounter Care Teams Safety Deposit Clerk Relationship Specialty Start Date End Date Fany James MD [address] [place] [address] PCP - General Internal Medicine 07/28/20 Lianna Willett Registered Nurse 06/30/25 06/30/25 Carmen Madsen Carding Machine FeederPlater Hot Dip 01/22/24 [employer] 01/25/25 04/06/25 documented as of this encounter
--- OUTSIDE RECORDS SUMMARY | 2025-09-02 16:26 | XMS_ITS | Encounter Summary ---
Author Organization [employer] Address [address] [place] [address] 7 [place] [address] Care Team Providers Care Resilient Tile Installer Name Role Phone Fany James MD Primary Care Provider TamieLianna finney Unavailable Reason for Referral * Imaging (Routine) - Closed Specialty Diagnoses / Procedures Referred By Hanane griffith Referred To Contact Radiology Diagnoses Visit for screening mammogram Procedures BI Mammogram Screening Bilateral Fany James MD [address] [place] [address] Phone: tel: fax: [facility] fax: Referral ID Status Reason Start Date Expiration Date Visits Re quested Visits Authorized [id number] Closed 08/17/2023 08/16/2024 1 1 Encounter Details Date Type Department Care Team (Late st Contact Info) Description 08/17/2023 Orders Only [facility] MED & PEDS [address] [place] [address] Fany James MD [address] [place] [address] Visit for screening mammogram (Primary Dx) Social [...] problems? Question Answer Date of Assessment Author Adelia interest or pleasure in doing things More [...] Description 09/15/2025 1:30 PM EST Medication Management [facility] MED & PEDS [address] [place] [address] Raegan Bhardwaj, PharmD [address] [place] [address] 09/30/2025 1:45 PM EST Office Visit [facility] MED & PEDS [address] [place] [address] Fany James MD [address] [place] [address] Scheduled Orders Name Type Priority Associated Diagnoses Orde r Schedule BI Mammogram Screening Bilateral Imaging Routine Visit for screening mammogram Expected: 08/17/2023, Expires: 10/17/2024 documented as of this encounter Visit Diagnoses Diagnosis Visit for screening mammogram- Primary documented in this encounter Additional Health Concerns Assessment Noted Time PHQ-9 Depression Total Score: 14 023 11:56 AM EDT documented as of this encounter Care Teams Resilient Tile Installer Relationship Specialty Start Date End Date Fany James MD 505 [facility] [address] PCP - General Internal Medicine 07/28/20 Lianna Willett Registered Nurse 06/30/25 06/30/25 Carmen Madsen Nut TightenerInclinometer Tester 01/22/24 [employer] 01/25/25 04/06/25 documented as of this encounter
--- OUTSIDE RECORDS SUMMARY | 2025-09-02 16:26 | XMS_ITS | Encounter Summary ---
Author Organization [employer] Address [address] [facility] 7t [place] [address] Care Team Providers Care Pharmaceutical Worker Name Role Phone Fany James MD Primary Care Provider [phone] Lianna Willett Unavailable [phone] Encounter Details Date Type Department Care Team ([facility] st Contact Info) Description 01/20/2025 Orders Only [facility] MED & PEDS [address] [place] [address] Provider, MD Marcellus Social History Tobacco Use [...] 09/15/2025 1:30 PM EST Medication Management [facility] MED & PEDS [address] [place] [address] Raegan Bhardwaj, PharmD [address] [place] [address] 09/30/2025 1:45 PM EST Office Visit [facility] MED & PEDS [address] [place], [place] [phone] Fany James MD [address] [place] [address] documented as of this encounter Procedures Procedure [...] Computed Tomogra phy us Historical Provider MD LOEN CT PROCEDURES Final R esult * CT [...] documented as of this encounter Care Teams Pharmaceutical Worker Relationship Specialty Start Date End Date Fany James MD [address] [place] [address] PCP - General Internal Medicine 07/28/20 Lianna Willett Registered Nurse 06/30/25 06/30/25 Carmen Madsen Track PatrolPush Button Switch Assembler 01/22/24 [employer] 01/25/25 04/06/25 documented as of this encounter
--- OUTSIDE RECORDS SUMMARY | 2025-09-02 16:26 | XMS_ITS | Encounter Summary ---
Author Organization [employer] Address [address] [facility] 7t [place] [address] Care Team Providers Care Radiator Repairer Name Role Phone Fany James MD Primary Care Provider [phone] Lianna Willett Unavailable [phone] Encounter Details Date Type Department Care Team ([facility] st Contact Info) Description 01/17/2025 Orders Only [facility] MED & PEDS [address] [place] [address] Provider, MD Marcellus Social History Tobacco Use [...] 1:30 PM EST Medication Management [facility] MED & PEDS [address] [place] [address] Raegan Bhardwaj, PharmD [address] [place] [address] 09/30/2025 1:45 PM EST Office Visit [facility] MED & PEDS [address] [place], [place] [phone] Fany James MD [address] [place] [address] documented as of this encounter Procedures Procedure [...] documented as of this encounter Care Teams Radiator Repairer Relationship Specialty Start Date End Date Fany James MD [address] [place] [address] PCP - General Internal Medicine 07/28/20 Lianna Willett Registered Nurse 06/30/25 06/30/25 Carmen Madsen Tarring Machine OperatorMultimedia Production Assistant 01/22/24 [employer] 01/25/25 04/06/25 documented as of this encounter
--- OUTSIDE RECORDS SUMMARY | 2025-09-02 16:26 | XMS_ITS | Encounter Summary ---
Author Organization [employer] Address [address] [facility] [address] [place] [address] Care Team Providers Care Contact Center Manager Name Role Phone Fany James MD Primary Care Provider [phone] Lianna Willett Unavailable [phone] Encounter Details Date Type Department Care Team ([facility] st Contact Info) Description 08/25/2023 Abstract [facility] [address] [place] [address] Lorena Zurita Social History Tobacco Use Types [...] 09/15/2025 1:30 PM EST Medication Management [facility] [address] [place] [address] Raegan Bhardwaj PharmD [address] [place] [address] 09/30/2025 1:45 PM EST Office Visit [facility] [address] [place] [address] Fany James MD [address] [place] [address] documented as of this encounter Procedures Procedure [...] documented as of this encounter Care Teams Contact Center Manager Relationship Specialty Start Date End Date Fany James MD [address] [place] [phone] PCP - General Internal Medicine 07/28/20 Lianna Willett Registered Nurse 06/30/25 06/30/25 Carmen Madsne Um NurseJig And Fixture Builder Apprentice 01/22/24 [facility] 01/25/25 04/06/25 documented as of this encounter
--- OUTSIDE RECORDS SUMMARY | 2025-09-02 16:26 | XMS_ITS | Encounter Summary ---
Author Organization [employer] Address [address] [facility] [address] [place] [address] Care Team Providers Care Tractor Crane Operator Name Role Phone Fany James MD Primary Care Provider Lianna Willett Unavailable [phone] Reason for Visit * Reason Comments Med Refill Encounter Details Date Type Department Care Team ([facility] Contact Info) Description 11/03/2024 Refill [facility] [address] [place] [address] Fany James MD [address] [place] [address] Tobacco dependence syndrome; Tobacco dependence syndrome Social [...] [facility] [address] [place] [address] Raegan Bhardwaj, PharmD [address] [place] [address] 09/30/2025 1:45 PM EST Office Visit [facility] [address] [place] [address] Fany James MD [address] [place] [address] documented as of this encounter Visit Diagnoses Diagnosis Tobacco dependence syndrome Tobacco use disorder documented in this encounter Additional Health Concerns Assessment Noted Time PHQ-9 Depression Total Score: 14 023 11:56 AM EDT documented as of this encounter Care Teams Tractor Crane Operator Relationship Specialty Start Date End Date Fany James MD [address] [place] [address] PCP - General Internal Medicine 07/28/20 Lianna Willett Registered Nurse 06/30/25 06/30/25 Carmen Madsen Engineering PsychologistCurrency Exchange Specialist 01/22/24 [facility] 01/25/25 04/06/25 documented as of this encounter
[2025-09-02 17:12] LABS: Alanine Aminotransferase 73 U/L (0-31); Albumin Level 4.7 g/dL (3.5-5.0); Alkaline Phosphatase 159 U/L (39-117); Anion Gap 18 (12-20); Aspartate Amino Transferase 139 U/L (5-31); Blood Urea Nitrogen 4 mg/dL (9-16); Calcium 9.6 mg/dL (8.4-10.2); Carbon Dioxide 17 mmol/L (22-29); Chloride 101 mmol/L (96-108); Estimated Glomerular Filt Rate > 60; Magnesium 1.9 mg/dL (1.6-2.6); Potassium 4.3 mmol/L (3.3-5.1); Sodium 132 mmol/L (135-145); Total Protein 8.8 g/dL (6.5-8.0)
[2025-09-02 17:42] LABS: Folate 7.6 ng/mL (> or = 4.0); Vitamin B12 351 pg/mL (200-900)
== END 2025-09-02 14:40 | disposition home or self-care (01) ==
LOC: HO.CHCLDS 14:39
PROVIDERS: Visit Provider Internal Medicine
DX: F10.90 Alcohol use, unspecified, uncomplicated (principal)
CPT/HCPCS: 36415; 80053; 82607; 82746; 83735; 84425; 84443

== ENCOUNTER 2025-09-08 15:05 | Outpatient (REF) | payer MEDICAID, SELFPAY ==
[2025-09-08 18:07] LABS: INTERNATIONAL NORM RATIO 0.9 (0.9-1.1); Prothrombin Time 11.6 SEC (11.2-13.5)
[2025-09-08 18:32] LABS: Osmolality, Serum 328 mosm/kg (281-305)
[2025-09-08 18:55] LABS: Ferritin 99 ng/mL (10-250); Iron 127 mcg/dL (30-160); Percent Iron Saturation 39 % (15-50); Total Iron Binding Capacity 322 mcg/dL (228-428); Unsaturated Iron Binding 195 ug/dL
[2025-09-09 07:47] LABS: HBS Num1 0.00 mIU/mL (0-7.99); ~Hepatitis B Surface Antibody NONREACTIVE (Nonreactive)
== END 2025-09-08 15:06 | disposition home or self-care (01) ==
LOC: HO.CHCLDS 15:05
PROVIDERS: Visit Provider Internal Medicine
DX: E87.1 Hypo-osmolality and hyponatremia (principal); F10.20 Alcohol dependence, uncomplicated; R74.01 Elevation of levels of liver transaminase levels; Z11.59 Encounter for screening for other viral diseases
CPT/HCPCS: 36415; 82728; 82784; 83540; 83930; 85610; 86706